=== PATIENT | female | born 1945 | race Caucasian/White ===

== ENCOUNTER → 2020-08-20 11:28 | Outpatient (CLI) | payer MEDICARE, OTHER, SELFPAY ==
--- NOTE | ~2020-08-20 | XR_ITS ---
EXAMINATION: XR lumbar spine 2-3V DATE: 08/20/2020 11:46 INDICATION: Low back pain. Left leg radiculopathy. TECHNIQUE: 3 views of lumbar spine were obtained. COMPARISON: None. FINDINGS: There is 10 degrees dextroscoliosis of lumbar spine. There is 3 mm anterolisthesis of L4 on L5. Vertebral body heights are normal. There is moderately decreased disc height at L5-S1. There are endplate osteophytes at all levels. There is multilevel facet joint osteoarthritis, [id number] re at L3-L4 and L4-L5. IMPRESSION: 1. Moderate lower lumbar spondylosis. 2. Lumbar levoscoliosis. Reviewed, dictated and finalized at location A. ORER
== END ==
PROVIDERS: PCP Family Medicine; Visit Provider Family Medicine
DX: M47.26 Other spondylosis with radiculopathy, lumbar region (principal)
CPT/HCPCS: 72100

== ENCOUNTER → 2021-05-27 11:00 | Outpatient (CLI) | payer MEDICARE, OTHER, SELFPAY ==
--- NOTE | ~2021-05-27 | XR_ITS ---
EXAMINATION: XR chest 2V DATE: 05/27/2021 11:26 INDICATION: Cough TECHNIQUE: PA and lateral views of the chest are obtained. COMPARISON: 08/24/2016 FINDINGS: The lungs are free of acute opacities. There is no pleural effusion or pneumothorax. The ca rdiomediastinal silhouette is normal. There is moderate thoracic spondylosis. Surgical clips and asym metry in size of the breasts (right small left) are consistent with right breast surgery. IMPRESSION: 1. No acute cardiopulmonary abnormality. Reviewed, dictated and finalized at location A.
--- NOTE | ~2021-05-27 | XR_ITS ---
EXAMINATION: XR humerus LT DATE: 05/27/2021 11:26 INDICATION: Left arm pain TECHNIQUE: AP and lateral views of the left humerus were obtained. COMPARISON: None. FINDINGS: Alignment is normal. No fracture. Mild polyarticular osteoarthritis at the left acromioclavicular, gl enohumeral and elbow joints. Osteopenia. No periosteal reaction or suspicious lytic or blastic bone l esions. Soft tissues are unremarkable. Visualized portions of the lateral right lung are clear. IMPRESSION: 1. Osteopenia and mild polyarticular arthritis at the left elbow and shoulder. No acute osseous abnor mality. Reviewed, dictated and finalized at location A. IMPRESSION: 1. Osteopenia and mild polyarticular arthritis at the left elbow and shoulder. No acute osseous abnormality.
== END ==
PROVIDERS: PCP Physician Assistant; Visit Provider Physician Assistant
DX: R05 Cough (principal); M19.012 Primary osteoarthritis, left shoulder; M19.022 Primary osteoarthritis, left elbow; M47.814 Spondylosis without myelopathy or radiculopathy, thoracic region
CPT/HCPCS: 71046; 73060

== ENCOUNTER → 2021-08-08 13:30 | Outpatient (CLI) | payer MEDICARE, OTHER, SELFPAY ==
--- NOTE | ~2021-08-08 | DEXA_ITS ---
Bone Density Report Name: Jalyn Harrington Age: 76 Sex: Female Ethnicity: Juany Date of : 1945 Indication: postmenopausal; screening for osteoporosis; height loss; Referring Provider: PAWEL, SAVANNAH Study: Bone densitometry was performed. Exam Date: August 08, 2021 Accession number: [id number] Bone Density: Region BMD T-score Z-score Classification AP Spine (L1-L4) 0.905 -1.3 1.2 Osteopenia Femoral Neck (Left) 0.732 -1.1 1.1 Osteopenia Total Hip (Left) 0.750 -1.6 0.3 Osteopenia Femoral Neck (Right) 0.659 -1.7 0.5 Osteopenia Total Hip (Right) 0.730 -1.7 0.2 Osteopenia Total Hip Mean 0.740 -1.7 0.3 Osteopenia World Health Organization criteria for BMD impression classify patients as: Normal (T-score at or above -1.0), Osteopenia (T-score between -1.0 and -2.5), or Osteoporosis (T-score at or below -2.5). 10-year Fracture Risk(1): Major Osteoporotic Fracture 13% Hip Fracture 3.2% Reported Risk Factors: [place] (), Neck BMD=0.659, BMI=25.6 (1) FRAX(R) Version 3.08. Fracture probability calculated for an untreated patient. Fracture probability may be lower if the patient has received treatment. Previous Exams: Region Exam Age BMD T-score BMD Change BMD Change Date g/cm2 vs Baseline vs Previous AP Spine(L1-L4) 08/08/2021 76 0.905 -1.3 0.024* -0.046* 06/12/2008 63 0.951 -0.9 0.070* 0.070* 04/07/2005 59 0.881 -1.5 Total Hip(Left) 08/08/2021 76 0.750 -1.6 -0.073 -0.106* 06/12/2008 63 0.855 -0.7 0.033 -0.072* 04/07/2005 59 0.927 -0.1 0.105 0.152 03/25/2004 58 0.776 -1.4 -0.047* -0.047* 03/11/2003 57 0.822 -1.0 Total Hip(Right) 08/08/2021 76 0.730 -1.7 -0.100 -0.104* 06/12/2008 63 0.834 -0.9 0.004 -0.026 04/07/2005 59 0.860 -0.7 0.030 0.073 03/25/2004 58 0.787 -1.3 -0.043* -0.043* 03/11/2003 57 0.830 -0.9 *Denotes significance at 95% confidence level, LSC for AP Spine = 0.022 g/cm2, LSC for Total Hip = 0.027 g/cm2 Clinical Information Provided by Patient: Has used the following medications: Vitamin D, Calcium, MTV Patient maximum height was 64.5 Menopause Age: 47 No regular weight bearing exercise Does not regularly consume dairy products Drinks caffeinated beverages Onset of menses at age 12 Number of children 2
== END ==
PROVIDERS: PCP Physician Assistant; Visit Provider Physician Assistant
DX: Z78.0 Asymptomatic menopausal state (principal); M85.88 Other specified disorders of bone density and structure, other site; M85.852 Other specified disorders of bone density and structure, left thigh; M85.851 Other specified disorders of bone density and structure, right thigh
CPT/HCPCS: 77080

== ENCOUNTER → 2022-08-10 15:41 | Outpatient (CLI) | payer MEDICARE, OTHER, SELFPAY ==
--- NOTE | ~2022-08-10 | XR_ITS ---
XR chest 2V DATE: 08/10/2022 16:04 INDICATION: Cough TECHNIQUE: 2 views COMPARISON: 06/23/2021 2 view chest FINDINGS: There is prominent likely rounded consolidation in the right lower lobe, with some right lo wer lobe volume loss. On the PA projection this has the appearance of a 5.5 cm rounded mass lesion. C ontinued radiographic follow-up is recommended to show complete clearing in order to exclude any liga ment lung neoplasm. The lungs otherwise appear mildly hyperinflated suggesting COPD. There may be a very small right pleural effusion. No hilar or mediastinal enlargement is noted. No pn eumothorax. Heart size appears within normal range. Small right breast shadow and surgical clips near the junction of the lateral right breast and axilla , likely due to axillary node dissection. Diffuse osteopenia. IMPRESSION: Prominent rounded consolidation in the right lower lobe, with some right lower lobe volum e loss. Continued radiographic follow-up is recommended to show complete clearing in order to exclude any lung mass or obstructing endobronchial lesion Probable partial right pneumonectomy and axillary node dissection Bilateral hyperinflation suggesting possible COPD; clinical correlation is advised, as the elderly ch est can simulate the appearance of COPD Osteopenia Reviewed, dictated and finalized at location B. APPLIANCE INSTALLER IMPRESSION: Prominent rounded consolidation in the right lower lobe, with some right lower lobe volume loss. Continued radiographic follow-up is recommended t o show complete clearing in order to exclude any lung mass or obstructing endob ronchial lesion Probable partial right pneumonectomy and axillary node dissection Bilateral hyperinflation suggesting possible COPD; clinical correlation is advi sed, as the elderly chest can simulate the appearance of COPD Osteopenia
== END ==
PROVIDERS: PCP Physician Assistant; Visit Provider Physician Assistant
DX: R05.9 Cough, unspecified (principal); J39.8 Other specified diseases of upper respiratory tract; M85.88 Other specified disorders of bone density and structure, other site; R91.8 Other nonspecific abnormal finding of lung field
CPT/HCPCS: 71046

== ENCOUNTER → 2022-08-30 13:23 | Outpatient (CLI) | payer MEDICARE, OTHER, SELFPAY ==
--- NOTE | ~2022-08-30 | XR_ITS ---
XR chest 2V DATE: 08/30/2022 13:58 INDICATION: Cough, shortness of breath TECHNIQUE: 2 views COMPARISON: 08/10/2022 2 view chest FINDINGS: Approximately 5.5 cm mass density is noted in the right lower lobe in addition to some atel ectasis and/or consolidation. There has been no improvement since 08/10/2022. Pulmonary malignancy ca nnot be excluded. CT thorax is recommended. Moderate bilateral hyperinflation consistent with COPD. No hilar or mediastinal enlargement is evident. Normal heart size. Diffuse osteopenia. There is mild thoracic dextroscoliosis. IMPRESSION: Persistent approximately 5 x 5 cm right lower lobe lung mass density without improvement since 08/10/2022; pulmonary malignancy must be considered. CT thorax examination is recommended. Reviewed, dictated and finalized at location B. OR SHAREPOINT DEVELOPER IMPRESSION: Persistent approximately 5 x 5 cm right lower lobe lung mass densit y without improvement since 08/10/2022; pulmonary malignancy must be considered . CT thorax examination is recommended.
== END ==
PROVIDERS: PCP Physician Assistant; Visit Provider Physician Assistant
DX: R91.8 Other nonspecific abnormal finding of lung field (principal)
CPT/HCPCS: 71046

== ENCOUNTER 2024-07-14 13:19 | Outpatient (CLI) | payer MEDICARE, OTHER, SELFPAY ==
--- NOTE | ~2024-07-14 | DEXA_ITS ---
Bone Density Report Name: YAEL FRIAS Age: 79 Sex: Female Ethnicity: Juany Date of : 1945 Indication: postmenopausal; screening for osteoporosis; height loss; cancer; Referring Provider: PAWEL, SAVANNAH Study: Bone densitometry was performed. Exam Date: July 14, 2024 Accession number: [id number] Bone Density: Region BMD T-score Z-score Classification AP Spine(L1-L4) 0.879 -1.5 1.2 Osteopenia Femoral Neck (Left) 0.578 -2.4 -0.1 Osteopenia Total Hip (Left) 0.687 -2.1 0.0 Osteopenia Femoral Neck (Right) 0.556 -2.6 -0.3 Osteoporosis Total Hip (Right) 0.678 -2.2 -0.1 Osteopenia Total Hip Mean 0.683 -2.2 -0.1 Osteopenia World Health Organization criteria for BMD impression classify patients as: Normal (T-score at or above -1.0), Osteopenia (T-score between -1.0 and -2.5), or Osteoporosis (T-score at or below -2.5). 10-year Fracture Risk: FRAX not reported because: Some T-score for Spine Total or Hip Total or Femoral Neck at or below -2.5 Clinical Information Provided by Patient: Has used the following medications: Vitamin D, Calcium Has the following medical conditions: Cancer, breact/lung ca Patient maximum height was 64.5 No regular weight bearing exercise Does not regularly consume dairy products Drinks caffeinated beverages Onset of menses at age 12 Number of children 2 Impression: The patient has osteoporosis, based on the Right Femoral Neck T-score. Discussion: INCREASED RISK OF FRACTURE. BONE DENSITY IS UNDESIRABLY LOW AT ONE OR MORE SKELETAL SITES, CONSISTENT WITH POSTMENOPAUSAL OSTEOPOROSIS. This patient's lowest T-score meets the World Health Organization's (WHO) criteria for osteoporosis at one or more sites (T-score -2.5 or below). In untreated patients, the risk of osteoporotic fracture increases approximately two-fold for each 1.0 SD decrease in T-score. Low bone density is not the only risk factor for fracture; also consider factors such as patient's age, frailty or poor health, risk of falling, risk of injury, previous osteoporotic fracture, family history of osteoporosis, cigarette smoking, low body weight, etc. Not everyone with low bone mineral density has osteoporosis; osteomalacia and other metabolic bone disorders should also be considered. Patients who have osteoporosis should be evaluated for specific diseases and conditions (secondary causes) that may cause or contribute to bone loss. The [place] Association of Clinical Endocrinologists (AACE) and National Osteoporosis Foundation (NOF) recommend pharmacologic intervention for all postmenopausal women whose T-score is in this range. The patient should follow a healthful lifestyle (good nutrition with adequate calcium and vitamin D, and appropriate weight-bearing exercise). Follow-Up: Consider a repeat BMD an
== END 2024-07-14 13:20 | disposition home or self-care (01) ==
LOC: ANHIMG 13:21
PROVIDERS: PCP Physician Assistant; Visit Provider Physician Assistant
DX: Z78.0 Asymptomatic menopausal state (principal); M85.852 Other specified disorders of bone density and structure, left thigh; M85.851 Other specified disorders of bone density and structure, right thigh; M85.88 Other specified disorders of bone density and structure, other site; M81.0 Age-related osteoporosis without current pathological fracture
CPT/HCPCS: 77080

== ENCOUNTER 2025-06-10 21:15 | Emergency (ER) | payer MEDICARE, OTHER, SELFPAY ==
--- OUTSIDE RECORDS SUMMARY | 2024-04-15 07:00 | XMS_ITS | Continuity of Care Document ---
Author Organization [facility] Address [address] [place] [address] Phone Care Team Providers Care Prior Authorization Technician Name Role Phone Regan Gray Unavailable Unavailable Procedures Procedure Date Therapeutic Activities Neuromuscular Re-Ed Therapeutic Activities Neuromuscular Re-Ed Therapeutic Activities Neuromuscular Re-Ed Therapeutic Activities Neuromuscular Re-Ed Remote therapeutic monitor monthly mgmt 20m Therapeutic Activities Neuromuscular Re-Ed Therapeutic Exercise Therapeutic Activities Neuromuscular Re-Ed Therapeutic Exercise Doc neg elder mal no plan PRES/ABSN URINE INCON ASSESS PT Evaluation Moderate Complexity Therapeutic Activities Neuromuscular Re-Ed Advance Directives Directive Yes / No Effective Date File Name No Information Encounters Encounter Description Practice Location Reason(s) For Visit Diagnoses Date Provider Providers Copied on Encounter [facility] [facility], [place], [place], [id number], [place] tel:[phone] [place] No Information Acacia Spears. [address] [facility], [address], [place], [address], [place]. tel:[phone] [facility] [facility] [address], [place], [id number], tel:[phone] [place] No Information May-1 0-202 4 Muehl Regan. [address] [place] [address], [facility] [address], [place], [facility], . tel:[phone] Referring Provider: James Coles [address] [place] [address] [address], [address]. tel:[phone], [id number], tel:[phone] [place] No Information May-0 8-202 4 Muehl Regan. [address] [place] [address], [facility] [address], [place], [facility], . tel:[phone] Referring Provider: James Coles [address] [place] [address] [place] [address], [facility]. tel:[phone], [id number], tel:[phone] [place] No Information May-0 3-202 4 Muehl Regan. [address] [place] [address], [address], [place], [facility], . tel:[phone] Referring Provider: James Coles [address] [place] [address], [address]. tel:[phone], [id number], tel:[phone] [place] No Information May-0 1-202 4 Muehl Regan. [address] [place] [address], [facility] [address], [place], [facility], . tel:[phone] Referring Provider: James Coles [address] [place] [address], [address]. tel:[phone], [place], [id number], tel:[phone] [place] Muscle weakness (generalized)Diz ziness and giddinessUnstead iness on feet Apr-3 0-202 4 Muehl Regan. [address] [facility], [address], [place], [facility], . tel:[phone] Referring Provider: James Coles [address] [place] [address], [place], [address]. tel:[phone], [id number], tel:[phone] [place] No Information Dec- 4 Lurtz Ofe. . Referring Provider: James Coles [address] [place] [address], [address]. tel:[phone], [id number], tel:[phone] [place] No Information 4 Lurtz Ofe. . Referring Provider: James Coles [address] [place] [address], [address]. tel:[phone], [id number], tel:[phone] [place] No Information 4 Acacia Spears. [address] [facility], [address], [place], [facility], . tel:[phone] Referring Provider: James Coles [address] [place] [address], [address]. tel:[phone] Family History Family Member Type Diagnosis Age At Onset No Information Payers Payer name Insurance type Covered alliance party ID Authoriza tivikash(s) Medicare [place] [id number] For Life Medicare Se condary Only CI [id number] Social History Type Description Quantity Date Captured Comments Sex Female Smoking Status No Information Chief Complaint And Reason For Visit No Information Reason For Referral Reason For Referral No Information History Of Present Illness Encounter Date Complaint History Of Prese nt Illness No Information Functional Status Date Functional Assessmen t No Information Instructions Date Instruction Additional Infor mation No Information Assessments Type Assessment Date No Information Patient Care Teams Name Effective Dates (start - stop) Status Members No Information
--- NOTE | ~2025-06-10 | CT_ITS ---
CTA CHEST CLINICAL HISTORY: syncope, Hx lung CA, +dimer . COMPARISON: Chest x-ray today TECHNIQUE: Helical CTA performed from thoracic inlet to upper abdomen 100 mL Omnipaque 350 Coronal, sagittal reformats. Multiplanar MIPS CT images acquired with automatic exposure control for dose reduction DLP: 430 mGy-cm FINDINGS: Pulmonary arteries: No PE. Thoracic Aorta: No dissection or aneurysm. Heart/pericardium: Coronary artery calcifications. RV/LV ratio: Normal. Lungs/Pleura: Emphysema. 14 mm spiculated lesion right lower lobe, surrounding atelectasis. Tracheobronchial tree: Patent. Nodes: No enlarged nodes. Bones: No acute bony abnormality. Soft tissues: Unremarkable. Visualized upper abdomen: Small hiatal hernia and/or distal esophagitis. IMPRESSION: 1. Right lower lobe spiculated lesion highly concerning for malignancy. Background emphysema. 2. No PE or other acute cardiopulmonary findings. Reviewed, dictated and finalized at location R. IMPRESSION: 1. Right lower lobe spiculated lesion highly concerning for malignancy. Backgr ound emphysema. 2. No PE or other acute cardiopulmonary findings.
--- NOTE | ~2025-06-10 | XR_ITS ---
Examination: XR chest 2V Clinical History: Syncope Comparison: None Technique: PA and Lateral Findings: Cardiomediastinal silhouette normal size and configuration. Right basilar scar. Emphysema. No acute bony abnormality. Osteopenia. IMPRESSION: 1. No acute cardiopulmonary findings. Reviewed, dictated and finalized at location R.
--- NOTE | ~2025-06-10 | CT_ITS ---
CT HEAD NON-CONTRAST CT C-SPINE Clinical History: syncope, hi Comparison: None Technique: Unenhanced axial images skull base to vertex. Coronal, sagittal reformats. Axial images thoracic inlet to skull base. Sagittal and coronal reformats. CT images acquired with automatic exposure control for dose reduction DLP: 605 mGy-cm Findings: Head: Mild global atrophy. Mild chronic white matter microvascular ischemic changes. Sulci, ventricles: Unremarkable. No intracerebral hemorrhage. No evidence acute territorial infarct. No mass effect, midline shift, intra-/extra-axial fluid collection. Bony calvarium intact. Visualized paranasal sinuses: Clear. Mastoid air cells: Clear. C-spine: No acute fracture. Grade 1 anterolisthesis of C3 on 4, C4 on 5, C7 on T1. Vertebral bodies normal height and alignment. Moderate degenerative changes. Disc spaces maintained. Prevertebral soft tissues within normal limits. Visualized lung apices: Emphysema. Visualized thyroid: Unremarkable. No enlarged cervical nodes. IMPRESSION: HEAD: 1. No acute intracranial findings. C-SPINE: 1. No acute fracture. Reviewed, dictated and finalized at location R. IMPRESSION: HEAD: 1. No acute intracranial findings. C-SPINE: 1. No acute fracture.
[2025-06-10 21:17] VITALS: BP 129/66; PULSE 76; RESP 16; O2SAT 100
--- NOTE | 2025-06-10 21:22 | ECG_ITS ---
Test Date: 2025-06-10 21:19:27 Measurements Intervals [place] Rate: 79 P: 45 MO: 174 QRS: -25 QRSD: 97 T: 28 QT: 372 QTc: 426 Interpretive Statements SINUS RHYTHM LOW QRS VOLTAGE IN PRECORDIAL LEADS [QRS DEFLECTION < 1.0 mV IN CHEST LEADS] POSSIBLE ANTERIOR MYOCARDIAL INFARCTION , PROBABLY OLD [30 ms Q WAVE IN V3/V4, OR R < 0.2 mV IN V4] CANNOT RULE OUT INFERIOR INFARCTION ABNORMAL ECG No previous ECG available for comparison Electronically Signed On 06-11-2025 07:58:11 CDT by Ambrosio Galaviz M.D.
[2025-06-10 21:37] LABS: Hematocrit 43.4 % (37.0-47.0); Hemoglobin 14.2 g/dL (12.0-15.0); Immature Granulocyte Percent A 0.3 % (0-0.5); Lymphocytes Absolute Auto 0.76 K/mm3 (0.9-3.2); Mean Corpuscular HGB Conc 32.7 g/dl (32-36); Mean Corpuscular Hemoglobin 29.2 pg (26-34); Mean Corpuscular Volume 89.3 fl (80-100); Nucleated Red Blood Cells Absolute Auto 0.000 K/mm3 (0.0-0.012); Nucleated Red Blood Cells Perc 0.0 % (0.0-0.2); Platelet Count Result 231 k/mm3 (150-375); Red Blood Count 4.86 M/mm3 (4.2-5.4); White Blood Count 12.6 K/mm3 (4.5-10.0)
--- OUTSIDE RECORDS SUMMARY | 2025-06-10 21:40 | XMS_ITS | Patient Health Record ---
Author Organization [facility] Address [address] [place], [place] [id number] Care Team Providers Care Electronic Court Recorder Name Role Phone Cristinahaylee Mattie Unavailable Unavailable Reason For Referral No Information Plan Of Treatment No Information Insurance Providers Payer Name Payer Address Payer Phone Subscriber Number Group Number Insured Name Patient Relationship to Insured Coverage Start Date Coverage End Date Medicare Part B [facility] [address] [place] [address] [id number] RODRIGUEZ YAEL Self - patient is the insured for Life ([employer]) [address] [place], [place] [id number] RODRIGUEZ YAEL Self - patient is the insured
--- OUTSIDE RECORDS SUMMARY | 2025-06-10 21:40 | XMS_ITS | Clinical Summary ---
Author Organization [facility] Address [address] [place] [address] Care Team Providers Care Health Safety And Environment Manager Name Role Phone Cristian Fontanez MD Unavailable Mattie Houser Unavailable [phone] Mattie Houser Primary Care Provider [phone] Allergies Active Allergy Reactions Criticality Noted Date Comments Amoxicillin-Pot Clavulanate Rash High 09/23/20 23 All over patient's body Medications Calcium Carb-Cholecalcif paul (CALCIUM + VITAMIN D3 OR) Take 1 tablet by mouth daily. Active vitamin C 1000 MG tablet Take 1,000 mg by mouth daily. Active BIOTIN OR Take 2,000 mg by mouth daily. Active AZELASTINE 137 MCG/SPRAY nasal spray 01/10/2021 Active predniSONE 10 mg tablet 08/26/2020 Active tiZANidine 4 MG tablet 08/13/2020 Active ibuprofen 800 MG tablet Take 1 tablet (800 mg total) by mouth every 8 (eight) hours as needed for Pain. 30 tablet 07/08/2021 Active Active Problems Problem Noted Date Diagnosed Date Lumbar radiculopathy 09/27/2020 Family History Medical History Relation Comments Cancer Father Relation Status Comments Daughter 1 Alive Daughter 2 Alive Father (Age 83) Mother (Age 59) of pancre atitis after gall bladder surgery 1970 Social History Tobacco Use Types Packs/Day Years Used Date Smoking Tobacco: Former Cigarettes 1 40 1 965 - 2005 Smokeless Tobacco: Never Tobacco Cessation:Counseling Given: Not Answered Alcohol Use Standard Drinks/Week Comments Yes 10 (1 standard drink = 0.6 oz pure alcohol) SOCIAL 1 o2 drinks most days since retired Comments No Sex and Gender Information Value Date Recorded Sex Assigned at Not on file Legal Sex Female 8:26 PM CDT Gender Identity Not on file Sexual Orientation Not on file 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 Not on file Not on file Last Filed Vital Signs Vital Sign Reading Time Taken Comments Blood Pressure 134/87 07/08/2021 11:45 AM CDT Pulse 56 07/08/2021 11:45 AM CDT Temperature 36.1 C (97 F) 07/08/2021 11:45 AM CDT Respiratory Rate 14 07/08/2021 11:45 AM CDT Oxygen Saturation 97% 07/08/2021 11:45 AM CDT Inhaled Oxygen Concentration - - Weight 64.1 kg (141 lb 5 oz) 07/08/2021 7:28 AM CDT Height 162.6 cm (5' 4) 07/08/2021 7:28 AM CDT Body Mass Index 24.26 07/08/2021 7:28 AM CDT Plan of Treatment Health Maintenance Due Date Last Done Comments DTaP, Tdap and Td Vaccines ( 1 - Tdap) 1963 Zoster Vaccines (1 of 2) 1994 Annual Medicare Wellness Visit 2009 Dexa Scan (General) 2009 RSV Immunization or 60+ Years (1 - 1-dose 75+ series) 2019 COVID-19 Vaccine (3 - 2024-2 6 season) 2025 11/25/2020, 10/28/2020 Pneumococcal Vaccine: 50+ Years Completed 01/16/2022, 01/10/2021 Meningococcal B Vaccine Aged Out No l onger eligible based on patient's age to complete this topic Meningococcal Vaccine Aged Out No melinda denise eligible based on patient's age to complete this topic RSV Immunizations Under 20 Months Aged Out No longer eligible b ased on patient's age to complete this topic Insurance MEDICARE [facility] Care Teams Health Safety And Environment Manager Relationship Specialty Start Date End Date Mattie Houser PA [address] [place] [address] PCP - General PHYSICIAN RING STRIKER 11/17/22 Cristian Fontanez MD CARDIOVASCULAR DISEASE 07/01/21 Mattie Houser PA [address] [place] [address] PHYSICIAN RING STRIKER 07/01/21
--- OUTSIDE RECORDS SUMMARY | 2025-06-10 21:41 | XMS_ITS | Encounter Summary ---
Author Organization [facility] Address [address] [address] [place] [address] Care Team Providers Care Weather Analyst Name Role Phone Unavailable Primary Care Provider Unavailabl e Encounter Details Date Type Department Care Team (Late st Contact Info) Description 12/26/2023 Lab Requisition [facility] - DermPath Lab [address] [place] [id number] Raúl Mahoney MD [address] [place] [address] Social History Tobacco Use Types Packs/Day Years Used Date Smoking Tobacco: Never Assessed Comments Unknown Sex and Gender Information Value Date Recorded Sex Assigned at Not on file Legal Sex Female 3:41 PM CDT Gender Identity Not on file Sexual Orientation Not on file documented as of this encounter Plan of Treatment Not on file documented as of this encounter Procedures Procedure Name Priority Date/Time Associated Diagnosis Comments DERMATOPATHOLOGY Routine 12/25/2023 12:0 0 AM CDT documented in this encounter Results * DERMATOPATHOLOGY (12/25/2023 12:00 AM CDT) Case Report Dermatopathology Report Case: [id number] Authorizing Provider: Raúl Mahoney MD Collected: 12/25/2023 12:00 AM Ordering Location: [facility] Physician [facility] - Received: 12/27/2023 06:27 AM DermPath Lab Pathologist: Lori Blanchard MD Specimen: Skin, midline mid forehead 9:06 AM CDT DERMATOPATHOLOGY LABORATORY Addendum 1 Tumor extends to the deep margin. 9:06 AM CDT DERMATOPATHOLOGY LABORATORY Addendum electronically signed by Lori Blanchard MD on 01/01/2024 at 0906 CDT Final Diagnosis Specimen A. SKIN, midline mid forehead: BASAL CELL CARCINOMA, NODULAR TYPE (C44.319) 9:06 AM CDT DERMATOPATHOLOGY LABORATORY at 1245 CDT Clinical History R/O BCC vs Scar. Check margins. 9:06 AM CDT DERMATOPATHOLOGY LABORATORY Gross Description Specimen A: Received is one formalin filled container labeled with the patients name and designated midline mid forehead. The specimen consists of a shave removal measuring 5x4x1 mm. Jar 0. 9:06 AM CDT DERMATOPATHOLOGY LABORATORY Microscopic Description Specimen A. SKIN, midline mid forehead: Within the dermis there are aggregates of basaloid cells with a high nuclear to cytoplasmic ratio and peripheral palisading. 9:06 AM CDT DERMATOPATHOLOGY LABORATORY Disclaimer An external and internal positive and negative controls are appropriate for the histochemical, immunohistochemical and immunofluorescence stain(s) in this case (if any), except where stated explicitly. The performance characteristics of the stain(s) cited in this report were developed and its performance characteristic determined by the Dermatopathology Laboratory at [facility], directed by Dr. Claire Multani. These tests need not be, and therefore are not, approved by the [place] Food and Drug Administration. The tests are used for clinical purposes. Billing Codes Specimen Charges Stain Charges 39357 1 9:06 AM CDT DERMATOPATHOLOGY LABORATORY Embedded Images 9:06 AM CDT DERMATOPATHOLOGY LABORATORY Pathology/Cytolog y TISSUE SPECIMEN FROM SKIN / Unknown 12/25/2023 12/27/2023 6:27 AM CDT us Raúl Mahoney MD LAB - PATHOLOGY/CYTOLOGY ORD ERABLES Edited Result - Final DERMATOPATHOLOGY LABORATORY [facility] - Department of Dermatology [address] [place] [address], [facility] [phone] documented in this encounter Visit Diagnoses Not on filedocumented in this encounter
--- OUTSIDE RECORDS SUMMARY | 2025-06-10 21:41 | XMS_ITS | Clinical Summary ---
Author Organization [facility] [employer] Address [address] [place] [address] Care Team Providers Care Rotary Drier Operator Name Role Phone Unavailable Primary Care Provider Unavailabl e Source Comments [facility] [employer],non-owned Affiliates and Associated Physician Practices is amultiple site organization consisting of ambulatory clinics and hospital sitesin [place], [place], [place] and [place]. This disclosure is being madepursuant to the Care Everywhere program and may not contain all information available regarding this patient. Last updated 18.[facility] [employer] Social History Tobacco Use Types Packs/Day Years Used Date Smoking Tobacco: Never Assessed Comments Unknown Sex and Gender Information Value Date Recorded Sex Assigned at Not on file Legal Sex Female 3:41 PM CDT Gender Identity Not on file Sexual Orientation Not on file Plan of Treatment Health Maintenance Due Date Last Done Comments MEDICARE AWV 12 MONTHS 1944 DTAP/TDAP/TD VACCINES (1 - Tdap) 1963 PNEUMOCOCCAL VACCINE 50+ (1 of 1 - PCV) 1994 ZOSTER VACCINE (1 of 2) 1994 Respiratory Syncytial Virus (RSV) Vaccine Pt: or over 60 yrs (1 - 1-dose 75+ series) 2019 DEPRESSION SCREENING 09/24/2024 COVID-19 VACCINE (3 - 2024-2 6 season) 2025 11/25/2020, 10/28/2020 INFLUENZA VACCINE (#1) 2025 3, 07/26/2022 BONE DENSITY TESTING Completed 08/08/2021 HEPATITIS B VACCINE Aged Out No longe r eligible based on patient's age to complete this topic HIB VACCINE Aged Out No longer eligi ble based on patient's age to complete this topic HPV VACCINE Aged Out No longer eligi ble based on patient's age to complete this topic MENINGOCOCCAL (Group B) VACCINE SHARED DECISION-MAKING Aged Out No longer eligible based on patient's age to complete this topic MENINGOCOCCAL GROUPS A/C/Y/W VACCINE Aged Out No longer eligible b ased on patient's age to complete this topic Insurance MEDICARE [facility]
--- OUTSIDE RECORDS SUMMARY | 2025-06-10 21:41 | XMS_ITS | Encounter Summary ---
Author Organization [facility] Healthcare Address [address] [place] [address] Care Team Providers Care Mold Breaker Name Role Phone Mattie Houser Primary Care Provider + [phone] Ángel Loera MD Unavailable [phone] James Coles MD PhD Unavailable [phone] Encounter Details Date Type Department Care Team (Late st Contact Info) Description 04/15/2025 Results Follow-Up [facility] Family Medicine [address] [place] [address] Mattie Houser PA [address] [facility] [address] [address] [place] [address] Vitamin B12, TSH, Lipid panel, Additional followed-up results: 6 Social History Tobacco Use Types Packs/Day Years Used Date Smoking Tobacco: Former Cigarettes 1 45 0 1960 - 06/23/2005 Smokeless Tobacco: Never AUDIT-C Answer Date Recorded Q1: How often do you have a drink containing alcohol? 4 or more times a week 04/14/2025 Q2: How many drinks containi ng alcohol do you have on a typical day when you are drinking? 1 or 2 Q3: How often do you have si x or more drinks on one occasion? Weekly 04/14/2025 PHQ-2 Answer Date Recorded PHQ-2 Total Score (If total score is 3 or more points, staff should administer the PHQ-9) 0 03/11/2025 Personal Safety Answer Date Recorded Have you ever been in or are you currently in a harmful physical or emotional relationship or is someone making you feel afraid or unsafe? 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 Gender Identity Female 03/31/2020 8:08 AM CDT Sexual Orientation Straight 03/31/2020 8: 08 AM CDT documented as of this encounter Plan of Treatment Not on file documented as of this encounter Visit Diagnoses Not on filedocumented in this encounter Care Teams Mold Breaker Relationship Specialty Start Date End Date Mattie Houser PA [address] [facility] [address] [place] [address] PCP - General Internal Medicine 12/21/20 Ángel Loera MD [address] [facility] [address] [place] [address] Consulting Physician Pulmonary Disease 10/25/22 James Coles MD PhD [address] [place] [address] MEDICAL ONCOLOGY, [address] [address] Consulting Physician Medical Oncology 11/02/22 documented as of this encounter
--- OUTSIDE RECORDS SUMMARY | 2025-06-10 21:41 | XMS_ITS | Clinical Summary ---
Author Organization [facility] Address [address] [facility] [place] [address] Care Team Providers Care Host/Hostess Head Name Role Phone Mattie Houser Primary Care Provider [phone] Ángel Loera MD Unavailable [phone] James Coles MD PhD Unavailable Allergies Active Allergy Reactions Criticality Noted Date Comments Amoxicillin-Pot Clavulanate Rash High 09/23/20 23 All over patient's body Medications calcium carbonate-vitam in D3 400-133.3 mg-unit tablet Take 1 tablet/capsule by mouth daily Active calcium-magnesi um 300-300 mg tablet Take 1 tablet/capsule by mouth daily Active multivitamin tabletIndicatio ns:Vitamin Deficiency Prevention Take 1 tablet by mouth daily Active cholecalciferol (VITAMIN D-3) 1,000 unit tablet Take 1 tablet (1,000 Units total) by mouth daily Active cycloSPORINE (RESTASIS) 0.05 % ophthalmic emulsion 3 Active triamcinolone (KENALOG) 0.5 % cream Apply topically 3 (three) times a day Apply as needed for itching 454 g 4 Active diphenhydrAMINE 25 mg capsule Take 1 tablet/capsule (25 mg total) by mouth every 6 (six) hours as needed for itching 20 capsule 4 Active ipratropium (ATROVENT) 21 mcg (0.03 %) nasal spray Administer 2 sprays into each nostril 2 (two) times a day 4 Active ibandronate (BONIVA) 150 mg tablet Take 1 tablet (150 mg total) by mouth every 30 (thirty) days Take in AM with glass of water prior to food, don't lie down for 30 minutes. 3 tablet 4 5 Active levothyroxine (SYNTHROID) 100 mcg tablet TAKE 1 TABLET BY MOUTH EVERY MORNING BEFORE BREAKFAST 90 tablet 1 5 Active Active Problems Patient Care Coordination No te Formatting of this note migh t be different from the original. Catie Marshall NP 11/17/2022 0915 AM This is a 77-year-old patient presenting to the clinic today for follow-up after undergoing right video assisted thoracoscopy and debridement of the pleural space with placement of a Pleurx catheter on 11/15/2022. She was discharged from [facility] the next day, 11/16/2022. She is being seen in the clinic today for further education regarding Pleurx cathter care and draining. Problem Noted Date Diagnosed Date At risk for diabetes mellitus 03/23/2025 Assessment & Plan (03/23/2025 12:40 AM CDT): Check labs Pruritic dermatitis 03/23/2025 Assessment & Plan (03/23/2025 12:40 AM CDT): Check labs since she has pruritus. Has Kenalog at home to use topically. If it persists need to get her in with Dermatology Fatigue 03/23/2025 Assessment & Plan (03/23/2025 12:40 AM CDT): Probably multifactorial. Check labs and followup to re-evaluate Malignant neoplasm of lower lobe of right lung 1 10/29/2023 Simple chronic bronchitis 08/27/2024 Need for influenza vaccination 08/10/2024 Assessment & Plan (08/10/2024 8:48 PM SUPERVISOR ACCOUNTS RECEIVABLE): Flu vaccine updated in the office today Osteopenia of both hips 08/10/2024 Assessment & Plan (03/23/2025 12:39 AM CDT): Reviewed DXA with patient today 06/2024 SPine (-1.5) Total hip (B) (-2.2) On Calcium and vitamin D. Started Boniva 150mg Tolerating well. Taking as directed. NO side effects. Assessment & Plan (12/05/2024 8:35 PM CDT): Patient is tolerating the Boniva well without any side effects or problems. Continue to take on a monthly basis. Will plan repeat DEXA in July 13, 2026. Assessment & Plan (08/10/2024 8:56 PM SUPERVISOR ACCOUNTS RECEIVABLE): 06/2024 SPine (-1.5) Total hip (B) (-2.2) Patients DXA showed her bones are not as dense as they were when she was younger. This is called osteopenia. To maintain the bone strength she already has, I encourage calcium (approximately 1500mg daily in divided doses or from your diet), vitamin D (supplement otc 5,000IU each day with a meal for best absorption) and weight bearing exercise (walking, dancing, gardening etc) to maintain the good bone strength. Discussed treatment options including Cascade versus bisphosphonates versus Prolia. Reviewed risks benefits alternatives side effects and proper use. Together agreed upon Boniva 150 mg taking 1 each month. She is to take it in the morning on an empty stomach and lie down for 30 minutes. Will recheck DEXA in about 2 years. If she starts having any difficulty swallowing or reflux type symptoms she is to call immediately. History of basal cell carcinoma (BCC) 02/22/2024 Assessment & Plan (08/10/2024 8:47 PM SUPERVISOR ACCOUNTS RECEIVABLE): Continue per Dr. Mahoney dermatology. She is following every 6 months Assessment & Plan (02/22/2024 6:56 PM CDT): By recollection patient states she has a basal cell removed from her forehead by Dr. Mahoney. She would prefer to transfer care to extraction machine operator Dr. Marie as this is who has been taking care of her . Will request the pathology so a referral can be made to Dr. Marie. Stressed the importance of patient following up with the extraction machine operator for definitive treatment. She verbalizes understanding and if she does not hear from us in the next couple of weeks she will reach out. Acquired hypothyroidism 10/06/2023 Assessment & Plan (03/23/2025 12:40 AM CDT): Continue levothyroxine 75 mcg. Monitor labs. Assessment & Plan (08/10/2024 8:48 PM SUPERVISOR ACCOUNTS RECEIVABLE): Continue levothyroxine. Monitor labs. Managed by Dr. Coles Assessment & Plan (02/22/2024 6:55 PM CDT): Continue levothyroxine. Monitor labs. Assessment & Plan (10/06/2023 11:13 PM SUPERVISOR ACCOUNTS RECEIVABLE): Continue levothyroxine. Monitor labs. Encounter for immunotherapy 02/22/2023 Long-term use of high-risk medication 02/22/2023 BMI 24.0-24.9, adult 02/14/2023 Assessment & Plan (03/11/2025 1:18 PM CDT): Weight/BMI is in healthy range. Continue healthy lifestyle to maintain. Assessment & Plan (12/05/2024 9:14 AM CDT): Weight/BMI is in healthy range. Continue healthy lifestyle to maintain. Assessment & Plan (08/10/2024 8:47 PM SUPERVISOR ACCOUNTS RECEIVABLE): Weight/BMI is in healthy range. Continue healthy lifestyle to maintain. Assessment & Plan (02/22/2024 6:55 PM CDT): Weight/BMI is in healthy range. Continue healthy lifestyle to maintain. Assessment & Plan (10/06/2023 11:04 PM SUPERVISOR ACCOUNTS RECEIVABLE): Weight/BMI is in healthy range. Continue healthy lifestyle to maintain. Assessment & Plan (09/10/2023 2:42 PM SUPERVISOR ACCOUNTS RECEIVABLE): Weight/BMI is in healthy range. Continue healthy lifestyle to maintain. Assessment & Plan (02/14/2023 9:13 AM CDT): Weight/BMI is in healthy range. Continue healthy lifestyle to maintain. Pleural effusion on right 10/24/2022 Panlobular emphysema 10/24/2022 Assessment & Plan (11/18/2022 2:08 PM SUPERVISOR ACCOUNTS RECEIVABLE): New diagnosis lung cancer with recent acute exacerbation of COPD. She is to complete her prednisone taper Tessalon Perles and use Spiriva as instructed. She has follow-up scheduled with Oncology to complete the planning of treatment for her new diagnosis of cancer. Dr. Nunez miss his her welfare investigator. Continue close follow-up with him. She has all of her medications available. Hyponatremia 10/23/2022 Persons encountering health services in other specified circumstances 10/17/2022 History of lung cancer 10/12/2022 Cancer Staging:Clinical stage from 11/07/2022:Stage IV(cT4, cN2, cM1) - Signed by James Coles MD PhD on 11/07/2022 Overview (08/10/2024): non-small cell cancer of right lung Assessment & Plan (08/10/2024 8:47 PM SUPERVISOR ACCOUNTS RECEIVABLE): Continue closely with Oncology. Continues with very close monitoring for her lung cancer. Assessment & Plan (02/22/2024 6:55 PM CDT): Continue closely with Oncology. Continues with very close monitoring for her lung cancer. Assessment & Plan (02/26/2023 1:42 PM CDT): Continue per Dr. Loera and Dr. Coles Assessment & Plan (11/18/2022 2:07 PM SUPERVISOR ACCOUNTS RECEIVABLE): New diagnosis lung cancer with recent acute exacerbation of COPD. She is to complete her prednisone taper Tessalon Perles and use Spiriva as instructed. She has follow-up scheduled with Oncology to complete the planning of treatment for her new diagnosis of cancer. Dr. Nunez miss his her welfare investigator. Continue close follow-up with him. She has all of her medications available. Mediastinal lymphadenopathy 09/26/2022 Lung mass 09/05/2022 Weight loss 09/05/2022 Assessment & Plan (11/01/2022 10:06 AM SUPERVISOR ACCOUNTS RECEIVABLE): Weight/BMI is in healthy range. Continue healthy lifestyle. Non-seasonal allergic rhinitis due to pollen Assessment & Plan (02/26/2023 1:41 PM CDT): Persistent allergic rhinitis. Has not responded to medications that have been tried and ready to see ENT. Medicare annual wellness visit, subsequent 01/16 Assessment & Plan (03/23/2025 12:39 AM CDT): Encouraged healthy lifestyle, good nutrition and exercise. Encouraged Calcium and Vitamin D and weight bearing exercise for bone health. Reviewed immunizations. Reviewed age appropirate screenings. Medicare Wellness Documentation is completed within the chart Assessment & Plan (01/28/2024 1:24 PM CDT): Encouraged healthy lifestyle, good nutrition and exercise. Encouraged Calcium and Vitamin D and weight bearing exercise for bone health. Reviewed immunizations. Reviewed age appropirate screenings. Medicare Wellness Documentation is completed within the chart Assessment & Plan (02/26/2023 1:41 PM CDT): Encouraged healthy lifestyle, good nutrition and exercise. Encouraged Calcium and Vitamin D and weight bearing exercise for bone health. Reviewed immunizations. Reviewed age appropirate screenings. Medicare Wellness Documentation is completed within the chart Assessment & Plan (02/04/2022 11:00 AM CDT): Encouraged healthy lifestyle, good nutrition and exercise. Encouraged Calcium and Vitamin D and weight bearing exercise for bone health. Reviewed immunizations. Reviewed age appropirate screenings. Medicare Wellness Documentation is completed within the chart Nasal congestion 01/16/2022 Assessment & Plan (02/04/2022 11:00 AM CDT): Patient has tried multiple rrio-tiu-upxmdapo as well as Astelin spray and just not getting any improvement. She is ready to see ENT. Will refer to Dr. Moser Bone loss 12/23/2021 Cigarette nicotine dependence in remission 07/01 Family history of heart disease 05/24/2021 Assessment & Plan (05/24/2021 11:55 AM CDT): Check labs Chronic cough 05/24/2021 Assessment & Plan (09/23/2023 1:08 AM SUPERVISOR ACCOUNTS RECEIVABLE): Start antibiotic, antihistamine (Claritin OR Zyrtec), Mucinex 12hour and Steroid nasal spray (Flonase). Push fluids. Rest. Supportive care. Recommend CXR -- Followup in 2-3 weeks to reassess -- will not be able to clear her for surgery until she is breathing easier. Assessment & Plan (05/24/2021 12:22 PM CDT): Check chest ray for mild cough Menopause 01/30/2021 Assessment & Plan (02/22/2024 6:54 PM CDT): Check DEXA Assessment & Plan (01/30/2021 10:24 PM CDT): Check DXA Lumbar radiculopathy 09/27/2020 Abnormal findings on diagnostic imaging of breas t 04/07/2020 History of breast cancer 09/04/2018 Encounter for screening mamm ogram for malignant neoplasm of breast 09/04/2018 History of malignant neoplasm of breast 08/10/20 16 Assessment & Plan (01/28/2024 1:24 PM CDT): History of breast cancer. Continue per Dr. Ramirez orders. She notes a new breast finding was found on a recent image that is following her lung cancer and that Dr. Ramirez is going to address her follow-up. Notes in the chart make it sound like she needs an ultrasound but it does not sound like she has been informed that yet. If it goes more than a week she is to call my office so we can follow-up and help get her scheduled. She is in agreement with the plan Estrogen receptor positive status (ER+) 09/09/20 15 Elevated liver enzymes Malignant neoplasm of female breast Resolved Problems Problem Noted Date Diagnosed Date Resolved Date Skin lesion of face 01/28/2024 02/22/20 24 Assessment & Plan (01/28/2024 1:23 PM CDT): Patient had biopsy done by Dr. Mahoney, dermatology. Was referred to another provider for Mohs procedure but wants to see Dr. Marie as her sees him. Will request the pathology report from Dr. Mahoney and then forward to Dr. Marie with a new referral. Rash 10/06/2023 01/28/2024 Assessment & Plan (10/06/2023 11:06 PM SUPERVISOR ACCOUNTS RECEIVABLE): Suspect this rash is actually a reaction to her Keytruda and not to the Augmentin. Discussed with her oncologist. It is improving so at this point they are recommending observing. Encouraged patient to follow up if symptoms worsen or do not resolve. Respiratory infection 10/06/20232023 Assessment & Plan (10/06/2023 11:07 PM SUPERVISOR ACCOUNTS RECEIVABLE): Symptoms have resolved. Her breathing is back to her baseline. Continue per pulmonology Simple chronic bronchitis 07/10/2023 BMI 20.0-20.9, adult 11/18/2022 023 Assessment & Plan (11/18/2022 2:08 PM SUPERVISOR ACCOUNTS RECEIVABLE): Weight/BMI is in healthy range. Continue healthy lifestyle to maintain. She has lost weight during this early diagnosis. Continue good nutrition to maintain and even gain weight. Moderate malnutrition 11/14/20222023 Shortness of breath 11/12/2022 02/22/20 24 Need for 23-polyvalent pneum ococcal polysaccharide vaccine 01/16/2022 11/18/2022 Assessment & Plan (02/04/2022 11:00 AM CDT): Pneumonia vaccine updated in office Flu vaccine need 06/23/2021 01/28/2024 Abnormal EKG 06/23/2021 01/28/2024 Assessment & Plan (06/23/2021 12:06 AM CDT): Patient presented today for preoperative clearance for a foot procedure with the epic interface analyst. Had routine EKG showed inferior infarct. Patient denies any knowledge of this. She denies any symptoms of an HI. She does recall that may be 40 or 50 years ago she was told there was an abnormal EKG but the other EKG she had maybe 20 years ago was fine. She is able to walk stairs without limitations. Denies chest pain shortness of breath syncopal episodes. Discussed cardiac risk based on her age and this finding and recommend as cardiac clearance with probable stress test prior to her surgery. Preop examination 06/23/2021 02/04/2022 Assessment & Plan (06/23/2021 12:07 AM CDT): Pre-op labs and EKG results are on the chart. EKG was abnormal. See entry above. Will plan referral to Cardiology for cardiac clearance. Fatigue 05/24/2021 01/28/2024 Assessment & Plan (05/24/2021 12:23 PM CDT): Probably multifactorial. Check labs and followup to re-evaluate Left arm pain 05/24/2021 01/28/2024 Assessment & Plan (05/24/2021 12:22 PM CDT): Check xray If negative may consider PT for improved mobility as she has limited external rotation Need for vaccination with 13 -polyvalent pneumococcal conjugate vaccine 01/30/2021 Assessment & Plan (01/30/2021 10:24 PM CDT): Updated in office today Medicare annual wellness visit, initial 01/30/2021 02/04/2022 Assessment & Plan (01/30/2021 10:24 PM CDT): Encouraged healthy lifestyle, good nutrition and exercise. Encouraged Calcium and Vitamin D and weight bearing exercise for bone health. Reviewed immunizations. Reviewed age appropirate screenings. Medicare Wellness Documentation is completed within the chart Malignant neoplasm of lung 0 02/26/2023 Encounters Date Type Department Care Team Description 04/15/2025 Results Follow-Up [facility] Medicine [facility] [facility] [address] [place] [address] Mattie Houser PA Vitamin B12, TSH, Lipid panel, Additional followed-up results: 6 04/14/2025 1:45 PM CDT Office Visit [facility] [address] [place] [address] [address] [place] [id number] James Coles MD PhD Malignant neoplasm of lower lobe of right lung (HCC) (Primary Dx) 04/14/2025 1:15 PM CDT Lab [facility] at [address] [address] Malignant neoplasm of lower lobe of right lung (HCC); Encounter for immunotherapy; Long-term use of high-risk medication 04/08/2025 10:55 AM CDT Ancillary Procedure [facility] at [address] [phone] Cellulitis of right upper extremity 04/08/2025 10:45 AM CDT Office Visit [facility] at [address] [phone] José Justcie NP Cellulitis of right upper extremity (Primary Dx) 04/08/2025 Results Follow-Up [facility] at [address] [phone] José Justice NP XR Wrist Right 3+ Vw 04/08/2025 Nurse Triage [facility] Medicine [address] [place] [address] [address] [place] [phone] Mattie Houser PA 04/07/2025 9:00 AM CDT - 04/07/2025 11:59 PM CDT Hospital Encounter [facility] Office Building [address] [place] [phone] Malignant neoplasm of lower lobe of right lung (HCC) Discharge Disposition: Discharge to home or self care 03/26/2025 9:35 AM CDT Lab [facility] Office Building [address] [address] Pruritic dermatitis; Acquired hypothyroidism; At risk for diabetes mellitus; Other terminal superintendent (current) drug therapy 03/11/2025 1:00 PM CDT Office Visit [facility] [address] [facility] [address] [place] [address] Mattie Houser PA Medicare annual wellness visit, subsequent (Primary Dx); Acquired hypothyroidism; Fatigue, unspecified type; Pruritic dermatitis; At risk for diabetes mellitus; Osteopenia of both hips; Other half-way (current) drug therapy; BMI 24.0-24.9, adult from Last 3 Months Immunizations Immunization Administration Dates Next Due Influenza, Quadrivalent, Heydi l Culture-based MDCK, Preservative Free, Antibiotic Free, Intramuscular 07/26/2022 Influenza, Quadrivalent, Hig h Dose, Preservative Free, Intrr 07/05/2023,06/22/2021,07/22/2020 Influenza, Trivalent, High D ose, Split, Preservative Free, Intramuscular 07/30/2024 Influenza, Unspecified 07/08/2023,2022(Deferred: Patient Refused),10/25/2021(Deferred: Patient Refused) Pfizer SARS-CoV-2 Monovalent Vaccination (12+ Yrs) PURPLE 11/25/2020,10/28/2020 Pneumococcal Conjugate PCV 13 01/10/2021 Pneumococcal Polysaccharide PPV23 01/16/2022 Surgical History Surgery Date Site/Laterality Comments SECTION x2 EYE SURGERY Bilateral cataracts BUNIONECTOMY 06/24/2021 - 07/24/2021 Left BREAST LUMPECTOMY 09/24/2010 - 09/23/2011 Right COLONOSCOPY US GUIDED THORACENTESIS 10/24/2022 N/A CHEST TUBE INSERTION 11/15/2022 Right aspira catheter TUBAL LIGATION 1977 Medical History Medical History Date Comments Personal history of other sp ecified conditions History of breast lump - (Ad ded by TW Conv) Cancer (HCC) breast. resolved Hx of radiation therapy Allergic rhinitis Lung mass Lung cancer (HCC) Osteoporosis 2023 Family History Medical History Relation Name Comments Cancer Father Christ Juarez Lung cancer Father Christ Juarez Family his tory of lung cancer - (Added by TW Conv) Dementia Maternal Grandfather Stroke Maternal Grandmother Kati Lopez Pancreatitis Mother Relation Name Status Comments Father Christ Juarez Maternal Grandfather Maternal Grandmother Kati Lopez Mother Social History Tobacco Use Types Packs/Day Years Used Date Smoking Tobacco: Former Cigarettes 1 45 0 1960 - 06/23/2005 Smokeless Tobacco: Never Tobacco Cessation:Counseling Given: Not Answered AUDIT-C Answer Date Recorded Q1: How often [...] on file Legal Sex Female 5:53 AM SUPERVISOR ACCOUNTS RECEIVABLE Gender Identity Female 03/31/2020 8:08 AM CDT Sexual Orientation Straight 03/31/2020 8: 08 AM CDT Obstetrics History Last Filed Vital Signs Vital Sign Reading Time Taken Comments Blood Pressure 144/81 04/14/2025 1:57 PM CDT Pulse 65 04/14/2025 1:57 PM CDT Temperature 36.6 C (97.8 F) 04/14/2025 1:57 PM CDT Respiratory Rate 18 04/14/2025 1:57 PM CDT Oxygen Saturation 97% 04/14/2025 1:57 PM CDT Inhaled Oxygen Concentration - - Weight 60.9 kg (134 lb 4.2 oz) 04/14/2025 1:57 P M CDT Height 161.3 cm (5' 3.5) 04/08/2025 10:44 AM CD T Body Mass Index 23.41 04/08/2025 10:44 AM CDT Plan of Treatment Health Maintenance Due Date Last Done Comments DTaP/Tdap/Td Vaccine (1 - Tdap) 1956 Hepatitis B Screening 1962 Zoster Vaccine (1 of 2) 1994 Covid-19 Vaccine (7 - 2024-2 6 season) 2025 07/05/2023, 07/26/2022, 02/16/2022, Additional history exists Influenza Vaccine (#1) 2025 , 07/08/2023, 07/08/2023, Additional history exists Depression Screening 03/11/2026 03/11/2025, 07/30/2024, 01/28/2024, Additional history exists Fall Risk Assessment 03/11/2026 03/11/2025, 12/05/2024, 01/28/2024, Additional history exists Well Visit 65+ 03/11/2026 03/11/2025, 05/02/2024, 02/14/2023, Additional history exists Osteoporosis Screening-Bone Density Scan 07/15/2026 07/15/2024, 08/08/2021, 09/10/2015, Additional history exists Pneumococcal vaccine 65+ Completed 01/16/2022, 12/23 Procedures Procedure Name Priority Date/Time Associated Diagnosis Comments EGFR Routine 04/14/2025 1:18 PM CDT Malignant neoplasm of lower lobe of right lung (HCC) DIFFERENTIAL AUTO Routine 04/14/2025 1:1 8 PM CDT Malignant neoplasm of lower lobe of right lung (HCC) CBC WITH AUTO DIFFERENTIAL Routine 04/14/2025 1:18 PM CDT Malignant neoplasm of lower lobe of right lung (HCC) COMPREHENSIVE METABOLIC PANEL Routine 04/14/2025 1:18 PM CDT Malignant neoplasm of lower lobe of right lung (HCC) TSH Routine 04/14/2025 1:18 PM CDT Malignant neoplasm of lower lobe of right lung (HCC) Encounter for immunotherapy Long-term use of high-risk medication XR WRIST RIGHT 3 OR MORE VIEWS Schedule KENNY, Read KENNY (Appt Today, Awaiting Results) 04/08/2025 10:59 AM CDT Cellulitis of right upper extremity CT CHEST ABDOMEN PELVIS W CONTRAST Schedule Routine, Read Routine (OP Routine) 04/07/2025 9:32 AM CDT Malignant neoplasm of lower lobe of right lung (HCC) EGFR Routine 03/26/2025 9:52 AM CDT Pruritic dermatitis DIFFERENTIAL AUTO Routine 03/26/2025 9:5 2 AM CDT Pruritic dermatitis CBC WITH AUTO DIFFERENTIAL Routine 03/26/2025 9:52 AM CDT Pruritic dermatitis COMPREHENSIVE METABOLIC PANEL Routine 03/26/2025 9:52 AM CDT Pruritic dermatitis CHAD QUALITATIVE WITH REFLEX TO CHAD QUANTITATIVE Routine 03/26/2025 9:52 AM CDT Pruritic dermatitis HEMOGLOBIN A1C Routine 03/26/2025 9:52 AM CDT At risk for diabetes mellitus Other terminal superintendent (current) drug therapy LIPID PANEL Routine 03/26/2025 9:52 AM CDT At risk for diabetes mellitus TSH Routine 03/26/2025 9:52 AM CDT Acquired hypothyroidism VITAMIN B12 Routine 03/26/2025 9:52 AM CDT Pruritic dermatitis DEXA AXIAL SKELETON BONE DENSITY 1 OR MORE SITES Schedule Routine, Read Routine (OP Routine) 07/15/2024 7:32 AM CDT Menopause from Last 3 Months or Most Recently Relevant to Health Maintenance Results * eGFR (04/14/2025 1:18 PM CDT) eGFR 87 >=60 mL/min/1. 73 m2 Comment: Interpretive Data Reference Interval Normal >/= 90 mL/min/1.73m2 Mildly decreased* 60 - 89 mL/min/1.73m2 Mildly to moderately decreased 45 - 59 mL/min/1.73m2 Moderately to severely decreased 30 - 44 mL/min/1.73m2 Severely decreased 15 - 29 mL/min/1.73m2 Kidney Failure < 15 mL/min/1.73m2 *Relative to young adult level Estimated glomerular filtration rate is determined by the 2020 CKD-EPI equation recommended by the National Kid[employer] (A Unifying Approach to GFR Estimation: Recommendations of the NKF-ASK Task Force on Reassessing the Inclusion of Race in Diagnosing Kidney Disease, JASN 2020). The CKD-EPI equation should not be used for patients with unstable renal function and has not been validated in children and those over 70. Current interpretive data was last reviewed 2021. Testing performed by: [address] [address] Blood 04/14/2025 1:18 PM CDT 04/14/2025 1:26 PM CDT us James Coles MD PhD LAB BLOOD ORDERABLES Final Result MARCEL [address] [facility] Department of Laboratories [place], [place] [id number] * Differential, auto (04/14/2025 1:18 PM CDT) Pathologist [facility] Neutrophil abs 5.58 1.50 - 6.50 K/cumm Comment:Testing performed by : [address] [address] Imm gran abs 0.03 0.00 - 0.10 K/cumm MARCEL Comment:Testing performed by : [address] [address] Lymphocyte abs 1.35 0.80 - 3.30 K/cumm MARCEL Comment:Testing performed by : [address] [address] [address] Monocyte abs 0.59 0.20 - 0.80 K/cumm [facility] Comment:Testing performed by : [address] [address] Eosinophil abs 0.15 0.00 - 0.50 K/cumm [facility] Comment:Testing performed by : [address] [address] Basophil abs 0.09 0.00 - 0.10 K/cumm [facility] Comment:Testing performed by : [address] [address] Neutrophil pct 71.6 % [facility] Comment: Interpretive Data Percent cell count reference ranges are not reported, since discordance with absolute values may lead to misinterpretation of CBC data. Current Interpretive Data was last revised on 2018. Testing performed by: [address] [address] Imm gran pct 0.4 % [facility] Comment: Interpretive Data Percent cell count reference ranges are not reported, since discordance with absolute values may lead to misinterpretation of CBC data. Current Interpretive Data was last revised on 2018. Testing performed by: [address] [address] Lymphocyte pct 17.3 % [facility] Comment: Interpretive Data Percent cell count reference ranges are not reported, since discordance with absolute values may lead to misinterpretation of CBC data. Current Interpretive Data was last revised on 2018. Testing performed by: [address] [address] Monocyte pct 7.6 % [facility] Comment: Interpretive Data Percent cell count reference ranges are not reported, since discordance with absolute values may lead to misinterpretation of CBC data. Current Interpretive Data was last revised on 2018. Testing performed by: [address] [address] Eosinophil pct 1.9 % [facility] Comment: Interpretive Data Percent cell count reference ranges are not reported, since discordance with absolute values may lead to misinterpretation of CBC data. Current Interpretive Data was last revised on 2018. Testing performed by: [address] [address] Basophil pct 1.2 % [facility] Comment: Interpretive Data Percent cell count reference ranges are not reported, since discordance with absolute values may lead to misinterpretation of CBC data. Current Interpretive Data was last revised on 2018. Testing performed by: [address] [address] Blood 04/14/2025 1:18 PM CDT 04/14/2025 1:26 PM CDT us Jaems Coles MD PhD LAB BLOOD ORDERABLES Final Result [facility] [address] [facility] Department [place] [address] * CBC with auto differential (04/14/2025 1:18 PM CDT) WBC 7.79 3.80 - 9.90 K/cumm Comment:Testing performed by : [address] [address] Hgb 13.6 11.9 - 15.5 g/dL [facility] Comment:Testing performed by : [address] [address] Hct 39.8 35.6 - 45.5 % [facility] Comment:Testing performed by : [address] [address] Plt 242 150 - 400 K/cumm [facility] Comment:Testing performed by : [address] [address] MPV 10.0 9.1 - 12.3 fL [facility] Comment:Testing performed by : [address] [address] RBC 4.66 3.90 - 5.20 M/cumm [facility] Comment:Testing performed by : [address] [address] MCV 85.4 81.3 - 96.4 fL [facility] Comment:Testing performed by : [address] [address] MCH 29.2 27.1 - 33.3 pg [facility] Comment:Testing performed by : [address] [address] MCHC 34.2 32.3 - 35.7 g/dL [facility] Comment:Testing performed by : [address] [address] RDW CV 14.4 11.1 - 14.9 % [facility] Comment:Testing performed by : [address] [address] RDW SD 44.5 35.7 - 48.1 fL [facility] Comment:Testing performed by : [address] [address] NRBC abs 0.00 0.00 - 0.01 K/cumm [facility] Comment:Testing performed by : [address] [address] ANC Prelim 5.58 1.50 - 6.50 K/cumm [facility] Comment: Interpretive Data The rapid ANC is a preliminary automated count and may vary from the final ANC (Neut Abs) reported in the WBC differential that follows. Current interpretive data was last revised 2024. Testing performed by: [address] [address] Blood 04/14/2025 1:18 PM CDT 04/14/2025 1:26 PM CDT us James Coles MD PhD LAB BLOOD ORDERABLES Final Result [facility] [address] [facility] Department of Laboratories [place], [place] [id number] * TSH (04/14/2025 1:18 PM CDT) Thyroid Stimulating Hormone 1.13 0.30 - 4.20 mcIUnit/mL Comment:Testing performed by : [address] [address] Blood 04/14/2025 1:18 PM CDT 04/14/2025 4:22 PM CDT us James Coles MD PhD LAB BLOOD ORDERABLES Final Result [facility] [address] [facility] Department [place] [address] * (ABNORMAL) Comprehensive metabolic panel (04/14/2025 1:18 PM CDT) Sodium 137 135 - 145 mmol/L Comment:Testing performed by : [address] [address] Potassium, pl 5.0(H) 3.3 - 4.9 mmol/L [facility]EL Comment:Testing performed by : [address] [address] Chloride 98 97 - 110 mmol/L [facility] Comment:Testing performed by : [address] [address] CO2 27 22 - 32 mmol/L [facility] Comment:Testing performed by : [address] [address] Anion gap 12 2 - 15 mmol/L [facility] Comment:Testing performed by : [address] [address] BUN 13 6 - 25 mg/dL [facility] Comment:Testing performed by : [address] [address] Creatinine 0.70 0.60 - 1.10 mg/dL [facility] Comment:Testing performed by : [address] [address] Glucose 107 70 - 199 mg/dL [facility] Comment: Interpretive Data Fasting glucose >/= 126 mg/dl is diagnostic for diabetes. Fasting is defined as no caloric intake for at least 8 hours. Fasting glucose between 100 mg/dl to 125 mg/dl is diagnostic of prediabetes. In a patient with classic symptoms of hyperglycemia or hyperglycemic crisis, a random glucose >/= 200 mg/dl is diagnostic for diabetes. In the absence of unequivocal hyperglycemia, results should be confirmed by repeat testing. The classification and Diagnosis of Diabetes Diabetes Care 202; 46: S19-S40. Current interpretive data was last revised 2022. Testing performed by: [facility], [address] [place] [address]., [address] Calcium 10.1 8.5 - 10.3 mg/dL M[facility]EL Comment:Testing performed by : [address] [address] Bilirubin, total 0.3 0.1 - 1.2 mg/dL [facility] Comment:Testing performed by : [address] [address] Protein, pl 7.3 6.5 - 8.5 g/dL [facility] Comment:Testing performed by : [address] [address] Albumin 4.4 3.5 - 5.0 g/dL [facility] Comment:Testing performed by : [address] [address] Alk phos 129 40 - 130 Units/L [facility] Comment:Testing performed by : [address] [address] ALT 39 7 - 45 Units/L [facility] Comment:Testing performed by : [address] [address] AST 35 10 - 45 Units/L [facility] Comment:Testing performed by : [address] [address] Blood 04/14/2025 1:18 PM CDT 04/14/2025 1:26 PM CDT James Coles MD PhD LAB BLOOD ORDERABLES Final Result Performing Organization Address City/State/[facility] Co de Phone Number MARCEL [address] [facility] Department [place] [address] * XR Wrist Right 3+ Vw (04/08/2025 10:59 AM CDT) Anatomical Region Laterality Modality Upper Extremities, Wrist Right Digital Radiography 04/08/2025 4:51 PM CDT Narrative 04/08/2025 4:56 PM CDT EXAM DESCRIPTION: 1. XR WRIST RIGHT 3 OR MORE VIEWS REASON FOR STUDY: Wrist pain without injury x 1 day FINDINGS: Three views submitted without comparison. No acute fracture. 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 Chondrocalcinosis is present. 1st metacarpophalangeal joint osteoarthritis is present. No dorsal wrist soft tissue swelling. IMPRESSION: 1. 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 THIS IS AN ELECTRONICALLY VERIFIED FINAL REPORT 04/08/2025 4:56 PM - Electronically signed by Ousmane Alicia M.D. T: Report ID: [id number] Reading Location: [place] [address] Procedure Note Ousmane Alicia MD - 04/08/2025 EXAM DESCRIPTION: 1. XR WRIST RIGHT 3 OR MORE VIEWS REASON FOR STUDY: Wrist pain without injury x 1 day FINDINGS: Three views submitted without comparison. No acute fracture. Mild distal radioulnar, triscaphe and moderate basalthumb joint osteoarthritis. Chondrocalcinosis is present. 1stmetacarpophalangeal joint osteoarthritis is present. No dorsal wrist soft tissue swelling. IMPRESSION: 1. 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 THIS IS AN ELECTRONICALLY VERIFIED FINAL REPORT 04/08/2025 4:56 PM - Electronically signed by Ousmane Alicai M.D. T: Report ID: [id number] Reading Location: [place] [address] José Justice NP IM XR PROCEDURES Final Result * CT chest abdomen pelvis with contrast (04/07/2025 9:32 AM CDT) Anatomical Region Laterality Modality Body N/A Computed Tomogra phy 04/10/2025 9:37 AM CDT Narrative 04/10/2025 9:51 AM CDT EXAM DESCRIPTION: CT CHEST ABDOMEN PELVIS W CONTRAST REASON FOR STUDY: restaging of lung cancer restaging of lung cancer, Malignant neoplasm of lower lobe of right lung (HCC) Diagnosed two years ago. Prior right lumpectomy and surgeries TECHNIQUE: CT scan of the chest, abdomen, and pelvis performed with intravenous and without oral contrast using helical scanning technique with dynamic intravenous contrast injection. Reconstructed coronal and sagittal MPR images reviewed. All images stored on PACS. Automated exposure control was used as a dose optimization technique for this examination. CONTRAST TYPE/DOSE: 100mL of IOVERSOL 350 MG IODINE/ML INTRAVENOUS SYRINGE injected via intravenous COMPARISON: 01/06/2025, 10/10/2024, 07/10/2024. FINDINGS: CHEST LUNGS: Stable opacity within the right lower lobe, reflecting chronic scarring/atelectasis, stable from prior examination. Advanced emphysema is again demonstrated. No pneumonic consolidation. No new suspicious pulmonary nodule. PLEURA: No effusion. No pneumothorax. MEDIASTINUM/[place]: The thyroid gland is unremarkable. There is no mediastinal or hilar lymphadenopathy. Precarinal node measures 9 mm short axis, stable. There is a stable 1 cm short axis dimension node at the AP window. 8 mm short axis right hilar node on image number 49 is stable. No new adenopathy. The esophagus is unremarkable. HEART: The heart is normal in size, without pericardial effusion. There are coronary artery calcifications. VASCULATURE CHEST: The thoracic aorta is normal in caliber. Mild atherosclerotic changes. Main pulmonary trunk is normal in caliber. AXILLA: There are scattered axillary nodes bilaterally, subcentimeter in size, left slightly larger than right, stable. Axillary dissection changes on the right are stable. CHEST WALL: No masses. No subcutaneous air. HARDWARE/LINES/TUBES: None. MUSCULOSKELETAL CHEST: Thoracic spondylosis and degenerative disc disease, with multilevel endplate osteophyte formation. Mild dextroconvex curvature, stable ABDOMEN/PELVIS LIVER: The liver is within normal limits in size. Tiny scattered hypodensities in the liver, stable, too small to characterize. GALLBLADDER: No stones identified. No wall thickening or inflammatory changes. BILE DUCTS: No intrahepatic or extrahepatic ductal dilatation. SPLEEN: Normal size. No focal lesions. PANCREAS: No identified cystic or solid masses. No significant calcifications. No adjacent inflammation or peripancreatic fluid collections. Pancreatic duct not dilated. ADRENALS: Normal. KIDNEYS/URINARY TRACT: The kidneys enhance symmetrically. There is no suspicious cystic or solid mass. Cyst within the left kidney measures 3.8 cm, stable. There is no hydronephrosis or hydroureter. The urinary bladder is mildly thick walled, accentuated by decompression. GI: The stomach is decompressed, accentuating wall thickness. Consider gastritis or peptic ulcer disease in the appropriate clinical setting. Mild wall thickening versus decompression involving proximal jejunal loops. There is no evidence of a bowel obstruction. The appendix is normal. There is diverticulosis of the colon. Decompression of portions of the colon limits assessment for wall thickening or mass. There is diverticulosis, without diverticulitis. PERITONEUM: There is no free intraperitoneal air. There is no free fluid. No mesenteric lymphadenopathy. RETROPERITONEUM: No retroperitoneal mass or adenopathy. REPRODUCTIVE: The uterus is within normal limits in size. Prominence of vascularity within the adnexa bilaterally, left greater than right with mild enlargement of the left gonadal vein, as can be seen with pelvic congestion, stable. VASCULATURE ABDOMEN: The abdominal aorta is atherosclerotic, without aneurysm or dissection. MUSCULOSKELETAL ABDOMEN PELVIS: There is no acute osseous abnormality. Minimal grade 1 anterolisthesis of L4 on L5. Degenerative disc disease at the lumbosacral junction. 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 OTHER: No significant abnormality. IMPRESSION: 1. Stable presumed post treatment changes/scarring atelectasis in the right lower lobe. 2. No new suspicious pulmonary nodule. 3. Stable borderline enlarged mediastinal and right hilar nodes. No new adenopathy. 4. No evidence of metastatic disease within the abdomen or pelvis. 5. Moderate to severe emphysema. Recommend evaluation for annual lung cancer screening enrollment if the patient qualifies based on clinical factors and smoking history. 6. Additional findings as above THIS IS AN ELECTRONICALLY VERIFIED FINAL REPORT 04/10/2025 9:51 AM - Electronically signed by Megan Quiros M.D. TW: LIBBY Report ID: [id number] Reading Location: [id number] Procedure Note Megan Quiros MD - 04/10/2025 EXAM DESCRIPTION: CT CHEST ABDOMEN PELVIS W CONTRAST REASON FOR STUDY: restaging of lung cancer restaging of lung cancer, Malignant neoplasm of lower lobe of right lung(HCC) Diagnosed two years ago. Prior right lumpectomy and surgeries TECHNIQUE: CT scan of the chest, abdomen, and pelvis performed with intravenous and without oral contrast using helical scanning techniquewith dynamic intravenous contrast injection. Reconstructed coronal and sagittalMPR images reviewed. All images stored on PACS. Automated exposure control was used as a dose optimization technique for this examination. CONTRAST TYPE/DOSE: 100mL of IOVERSOL 350 MG IODINE/ML INTRAVENOUS SYRINGE injected via intravenous COMPARISON: 01/06/2025, 10/10/2024, 07/10/2024. FINDINGS: CHEST LUNGS: Stable opacity within the right lower lobe, reflecting chronic scarring/atelectasis, stable from prior examination. Advanced emphysemais again demonstrated. No pneumonic consolidation. No new suspiciouspulmonary nodule. PLEURA: No effusion. No pneumothorax. MEDIASTINUM/J[place]: The thyroid gland is unremarkable. There is no mediastinal or hilar lymphadenopathy. Precarinal node measures 9 mm short axis, stable. There is a stable 1 cm short axis dimension node at the AP window. 8 mm short axis right hilar node on image number 49 is stable.No new adenopathy. The esophagus is unremarkable. HEART: The heart is normal in size, without pericardial effusion. Thereare coronary artery calcifications. VASCULATURE CHEST: The thoracic aorta is normal in caliber. Mild atherosclerotic changes. Main pulmonary trunk is normal in caliber. AXILLA: There are scattered axillary nodes bilaterally, subcentimeter in size, left slightly larger than right, stable. Axillary dissectionchanges on the right are stable. CHEST WALL: No masses. No subcutaneous air. HARDWARE/LINES/TUBES: None. MUSCULOSKELETAL CHEST: Thoracic spondylosis and degenerative discdisease, with multilevel endplate osteophyte formation. Mild dextroconvexcurvature, stable ABDOMEN/PELVIS LIVER: The liver is within normal limits in size. Tiny scattered hypodensities in the liver, stable, too small to characterize. GALLBLADDER: No stones identified. No wall thickening or inflammatory changes. BILE DUCTS: No intrahepatic or extrahepatic ductal dilatation. SPLEEN: Normal size. No focal lesions. PANCREAS: No identified cystic or solid masses. No significant calcifications. No adjacent inflammation or peripancreatic fluidcollections. Pancreatic duct not dilated. ADRENALS: Normal. KIDNEYS/URINARY TRACT: The kidneys enhance symmetrically. There is no suspicious cystic or solid mass. Cyst within the left kidney measures 3.8cm, stable. There is no hydronephrosis or hydroureter. The urinary bladderis mildly thick walled, accentuated by decompression. GI: The stomach is decompressed, accentuating wall thickness. Consider gastritis or peptic ulcer disease in the appropriate clinical setting.Mild wall thickening versus decompression involving proximal jejunal loops.There is no evidence of a bowel obstruction. The appendix is normal. There is diverticulosis of the colon. Decompression of portions of the colonlimits assessment for wall thickening or mass. There is diverticulosis, without diverticulitis. PERITONEUM: There is no free intraperitoneal air. There is no freefluid. No mesenteric lymphadenopathy. RETROPERITONEUM: No retroperitoneal mass or adenopathy. REPRODUCTIVE: The uterus is within normal limits in size. Prominence of vascularity within the adnexa bilaterally, left greater than right withmild enlargement of the left gonadal vein, as can be seen with pelviccongestion, stable. VASCULATURE ABDOMEN: The abdominal aorta is atherosclerotic, without aneurysm or dissection. MUSCULOSKELETAL ABDOMEN PELVIS: There is no acute osseous abnormality. Minimal grade 1 anterolisthesis of L4 on L5. Degenerative disc disease atthe lumbosacral junction. 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 OTHER: No significant abnormality. IMPRESSION: 1. Stable presumed post treatment changes/scarring atelectasis in theright lower lobe. 2. No new suspicious pulmonary nodule. 3. Stable borderline enlarged mediastinal and right hilar nodes. No new adenopathy. 4. No evidence of metastatic disease within the abdomen or pelvis. 5. Moderate to severe emphysema. Recommend evaluation for annual lung cancer screening enrollment if the patient qualifies based on clinicalfactors and smoking history. 6. Additional findings as above THIS IS AN ELECTRONICALLY VERIFIED FINAL REPORT 04/10/2025 9:51 AM - Electronically signed by Megan Quiros M.D. TW: TW Report ID: [id number] Reading Location: [place] [address] us James Coles MD PhD IMG CT PROCEDURES Fin al Result * CHAD ab ql w/rflx to CHAD qn (03/26/2025 9:52 AM CDT) CHAD Negative Comment: Interpretive Data Normal range for CHAD Qualitative Antibody = Negative. 1. CHAD is performed using indirect immunofluorescence against HEp-2 cells 2. CHAD titers are performed on all positive qualitative results. 3. A significantly positive CHAD result is defined as a positive nuclear fluorescence at a titer of 1:80 or greater. 4. 15% of normal people above age 65 have significantly positive CHAD results. 5% or less of normal people age 65 or under have significantly positive CHAD results. Current interpretive data was last revised on 2020. Testing performed by: [facility], [address] [place]., [address] Blood 03/26/2025 9:52 AM CDT 03/26/2025 2:43 PM CDT Mattie DEE LAB BLOOD ORDERABLES Final Result MARCEL [address] [facility] Department [place] [address] * eGFR (03/26/2025 9:52 AM CDT) eGFR 87 >=60 mL/min/1. 73 m2 Comment: Interpretive Data Reference Interval Normal >/= 90 mL/min/1.73m2 Mildly decreased* 60 - 89 mL/min/1.73m2 Mildly to moderately decreased 45 - 59 mL/min/1.73m2 Moderately to severely decreased 30 - 44 mL/min/1.73m2 Severely decreased 15 - 29 mL/min/1.73m2 Kidney Failure < 15 mL/min/1.73m2 *Relative to young adult level Estimated glomerular filtration rate is determined by the 2020 CKD-EPI equation recommended by the National Kid[employer] (A Unifying Approach to GFR Estimation: Recommendations of the NKF-ASK Task Force on Reassessing the Inclusion of Race in Diagnosing Kidney Disease, JASN 2020). The CKD-EPI equation should not be used for patients with unstable renal function and has not been validated in children and those over 70. Current interpretive data was last reviewed 2021. Testing performed by: [facility], [address] [place] [address]., [address] Blood 03/26/2025 9:52 AM CDT 03/26/2025 10:46 AM CDT us Mattie DEE LAB BLOOD ORDERABLES Final Result MARCEL [address] [facility] Department [place] [address] * Differential, auto (03/26/2025 9:52 AM CDT) Neutrophil abs 3.72 1.50 - 6.50 K/cumm Comment:Testing performed by : [address] [address] Imm gran abs 0.02 0.00 - 0.10 K/cumm MARCEL Comment:Testing performed by : [address] [address] Lymphocyte abs 1.23 0.80 - 3.30 K/cumm MARCEL Comment:Testing performed by : [address] [address] Monocyte abs 0.66 0.20 - 0.80 K/cumm [facility] Comment:Testing performed by : [address] [address] Eosinophil abs 0.25 0.00 - 0.50 K/cumm [facility] Comment:Testing performed by : [address] [address] Basophil abs 0.06 0.00 - 0.10 K/cumm [facility] Comment:Testing performed by : [address] [address] Neutrophil pct 62.7 % [facility] Comment: Interpretive Data Percent cell count reference ranges are not reported, since discordance with absolute values may lead to misinterpretation of CBC data. Current Interpretive Data was last revised on 2018. Testing performed by: [address] [address] Imm gran pct 0.3 % MARCEL Comment: Interpretive Data Percent cell count reference ranges are not reported, since discordance with absolute values may lead to misinterpretation of CBC data. Current Interpretive Data was last revised on 2018. Testing performed by: [address] [address] Lymphocyte pct 20.7 % [facility] Comment: Interpretive Data Percent cell count reference ranges are not reported, since discordance with absolute values may lead to misinterpretation of CBC data. Current Interpretive Data was last revised on 2018. Testing performed by: [address] [address] Monocyte pct 11.1 % [facility]EL Comment: Interpretive Data Percent cell count reference ranges are not reported, since discordance with absolute values may lead to misinterpretation of CBC data. Current Interpretive Data was last revised on 2018. Testing performed by: [address] [address] Eosinophil pct 4.2 % [facility]EL Comment: Interpretive Data Percent cell count reference ranges are not reported, since discordance with absolute values may lead to misinterpretation of CBC data. Current Interpretive Data was last revised on 2018. Testing performed by: [address] [address] Basophil pct 1.0 % M[facility]EL Comment: Interpretive Data Percent cell count reference ranges are not reported, since discordance with absolute values may lead to misinterpretation of CBC data. Current Interpretive Data was last revised on 2018. Testing performed by: [address] [address] Blood 03/26/2025 9:52 AM CDT 03/26/2025 10:46 AM CDT us Mattie DEE LAB BLOOD ORDERABLES Final Result [facility] [address] [facility] Department [place] [address] * CBC with auto differential (03/26/2025 9:52 AM CDT) WBC 5.94 3.80 - 9.90 K/cumm Comment:Testing performed by : [address] [address] Hgb 14.7 11.9 - 15.5 g/dL MARCEL Comment:Testing performed by : [address] [address] Hct 44.2 35.6 - 45.5 % MARCEL Comment:Testing performed by : [address], [address] Plt 221 150 - 400 K/cumm MARCEL Comment:Testing performed by : [address], [address] MPV 11.1 9.1 - 12.3 fL MARCEL Comment:Testing performed by : [address], [address] RBC 5.07 3.90 - 5.20 M/cumm MARCEL Comment:Testing performed by : [address], [address] MCV 87.2 81.3 - 96.4 fL MARCEL Comment:Testing performed by : [address], [address] MCH 29.0 27.1 - 33.3 pg MARCEL Comment:Testing performed by : [address], [address] MCHC 33.3 32.3 - 35.7 g/dL MARCEL Comment:Testing performed by : [address], [address] RDW CV 14.6 11.1 - 14.9 % MARCEL Comment:Testing performed by : [address], [address] RDW SD 46.5 35.7 - 48.1 fL MARCEL Comment:Testing performed by : [address], [address] NRBC abs 0.00 0.00 - 0.01 K/cumm MARCEL Comment:Testing performed by : [address], [address] Blood 03/26/2025 9:52 AM CDT 03/26/2025 10:46 AM CDT us Mattie DEE LAB BLOOD ORDERABLES Final Result MARCEL [facility] [address] [place] [address] * TSH (03/26/2025 9:52 AM CDT) [facility] Thyroid Stimulating Hormone 0.93 0.30 - 4.20 mcIUnit/mL Comment:Testing performed by : [address] [address] Blood 03/26/2025 9:52 AM CDT 03/26/2025 10:46 AM CDT Mattie DEE LAB BLOOD ORDERABLES Final Result Performing Organization Address City/[facility] Co de Phone Number [id number] [address] * (ABNORMAL) Hemoglobin A1c (03/26/2025 9:52 AM CDT) [facility] Hgb A1C 5.8(H) 4.0 - 5.6 % Comment:Testing performed by : [address] [address] Estimated Average Glucose 120 mg/dL MARCEL Comment: The ADA recommends reporting an estimated Average Glucose (eAG) with all Hemoglobin A1c results using the equation derived from a study of 507 normal and diabetic adults. Minority populations were underrepresented and children were not included. (Diabetes Care 31:9629-3503, 2008). The eAG is not equivalent to a fasting glucose. Testing performed by: [address] [address] Blood 03/26/2025 9:52 AM CDT 03/26/2025 10:46 AM CDT Mattie DEE LAB BLOOD ORDERABLES Final Result Performing Organization Address City/[facility]/ZIP Co de Phone Number [place] [address] [place] [address] * Vitamin B12 (03/26/2025 9:52 AM CDT) Vitamin B12 578 230 - 1,250 pg/mL Comment:Testing performed by : [address] [address] Blood 03/26/2025 9:52 AM CDT 03/26/2025 10:46 AM CDT Mattie DEE LAB BLOOD ORDERABLES Final Result MARCEL [address] [facility] Department [place] [address] * Lipid panel (03/26/2025 9:52 AM CDT) Cholesterol 192 30 - 199 mg/dL Comment: Interpretive Data Ages < or = 19 years Acceptable: <170 mg/dL Borderline high: 170-199 mg/dL High: >or= 200 mg/dL Ages > or = 20 years Desirable: <200 mg/dL Borderline high: 200-239 mg/dL High: >or= 240 mg/dL Literature References: 1. Expert Panel on Integrated Guidelines for Cardiovascular Health and Risk Reduction in Children and Adolescents. Pediatrics 2011;128:S213 2. NCEP Expert Panel. Circulation 2004;110:227 Current Interpretive Data was last revised on 2018. Testing performed by: [address] [address] Triglycerides 104 <=149 mg/dL MILLIALFONSO Comment: Interpretive Data Ages < or = 9 years Acceptable: <75 mg/dL Borderline high: 75-99 mg/dL High: >or= 100 mg/dL Ages 10 to 20 years Acceptable: <90 mg/dL Borderline high: 90-129 mg/dL High: >or= 130 mg/dL Ages > or = 20 years Desirable: <150 mg/dL Borderline high: 150-199 mg/dL High: 200-499 mg/dL Very high: >or= 499 mg/dL Literature References: 1. Expert Panel on Integrated Guidelines for Cardiovascular Health and Risk Reduction in Children and Adolescents. Pediatrics 2011;128:S213 2. NCEP Expert Panel. Circulation 2004;110:227 Current Interpretive Data was last revised on 2018. Testing performed by: [address] [place] [address] HDL 98 >=40 mg/dL MARCEL Comment: Interpretive Data Ages < or = 19 years Acceptable: >45 mg/dL Borderline low: 40-45 mg/dL Low: <40 mg/dL Ages > or = 20 years Desirable: >or= 60 mg/dL Low: <40 mg/dL Literature References: 1. Expert Panel on Integrated Guidelines for Cardiovascular Health and Risk Reduction in Children and Adolescents. Pediatrics 2011;128:S213 2. NCEP Expert Panel. Circulation 2004;110:227 Current Interpretive Data was last revised on 2018. Testing performed by: [address] [address] LDL, calculated 76 <=129 mg/dL MARCEL CHAMPION Comment: Interpretive Data Ages < or = 19 years Acceptable: <110 mg/dL Borderline high: 110-129 mg/dL High: >or= 130 mg/dL Ages > or = 20 years Optimal: <100 mg/dL Near optimal: 100-129 mg/dL Borderline high: 130-159 mg/dL High: >160 mg/dL Calculated using the Carlos LDL-C estimating equation. This equation was implemented on 2024. Prior to this date LDL-C was estimated using the Friedewald equation. Literature References: 1. Expert Panel on Integrated Guidelines for Cardiovascular Health and Risk Reduction in Children and Adolescents. Pediatrics 2011;128:S213 2. NCEP Expert Panel. Circulation 2004;110:227 3. Carlos Izaguirre et al. JULIANNA Cardiol. 2019January 22;5(5):540-548. doi: 10.1001/[email or web address] Current Interpretive Data was last revised on 2024. Testing performed by: [address] [address] Non-HDL Cholesterol 94 mg/dL MARCEL CHAMPION Comment: Interpretive Data Ages < or = 19 years Acceptable: <120 mg/dL Borderline high: 120-144 mg/dL High: >145 mg/dL Ages > or = 20 years When triglycerides are >200 mg/dL, Non-HDL cholesterol is a secondary target of therapy with treatment goals that are 30 mg/dL greater than the LDL cholesterol target. Literature References: 1. Expert Panel on Integrated Guidelines for Cardiovascular Health and Risk Reduction in Children and Adolescents. Pediatrics 2011;128:S213 2. NCEP Expert Panel. Circulation 2004;110:227 Current Interpretive Data was last revised on 2018. Testing performed by: [address] [address] Chol/HDL ratio 2 MARCEL Comment:Testing performed by : [address] [address] Blood 03/26/2025 9:52 AM CDT 03/26/2025 10:46 AM CDT us Mattie DEE LAB BLOOD ORDERABLES Final Result MARCEL [facility] Department [place] [address] * Comprehensive metabolic panel (03/26/2025 9:52 AM CDT) Sodium 138 135 - 145 mmol/L Comment:Testing performed by : [address] [address] Potassium, pl 4.3 3.3 - 4.9 mmol/L MARCEL Comment:Testing performed by : [address] [address] Chloride 100 97 - 110 mmol/L MARCEL Comment:Testing performed by : [address] [address] CO2 26 22 - 32 mmol/L MARCEL Comment:Testing performed by : [address] [address] Anion gap 12 2 - 15 mmol/L MARCEL Comment:Testing performed by : [address] [address] BUN 9 6 - 25 mg/dL MARCEL Comment:Testing performed by : [address] [address] Creatinine 0.70 0.60 - 1.10 mg/dL MARCEL Comment:Testing performed by : [address] [address] Glucose 101 70 - 199 mg/dL MARCEL Comment: Interpretive Data Fasting glucose >/= 126 mg/dl is diagnostic for diabetes. Fasting is defined as no caloric intake for at least 8 hours. Fasting glucose between 100 mg/dl to 125 mg/dl is diagnostic of prediabetes. In a patient with classic symptoms of hyperglycemia or hyperglycemic crisis, a random glucose >/= 200 mg/dl is diagnostic for diabetes. In the absence of unequivocal hyperglycemia, results should be confirmed by repeat testing. The classification and Diagnosis of Diabetes Diabetes Care 2021; 46: S19-S40. Current interpretive data was last revised 2022. Testing performed by: [address] [address] Calcium 9.5 8.5 - 10.3 mg/dL MARCEL Comment:Testing performed by : [address] [address] Bilirubin, total 0.6 0.1 - 1.2 mg/dL MARCEL Comment:Testing performed by : [address] [address] Protein, pl 7.8 6.5 - 8.5 g/dL [facility] Comment:Testing performed by : [address] [address] Albumin 4.5 3.5 - 5.0 g/dL [facility] Comment:Testing performed by : [address] [address] Alk phos 127 40 - 130 Units/L [facility] Comment:Testing performed by : [address] [address] ALT 33 7 - 45 Units/L [facility] Comment:Testing performed by : [address] [address] AST 34 10 - 45 Units/L [facility] Comment:Testing performed by : [address] [address] Blood 03/26/2025 9:52 AM CDT 03/26/2025 10:46 AM CDT Mattie DEE LAB BLOOD ORDERABLES Final Result MILLINER [facility] [address] [facility] Department of Laboratories [place] [phone] * (ABNORMAL) Dexa Axial Skeleton Bone Density 1 or 2 Site (07/15/2024 7:32 AM CDT) SCRIBED DXA T-SCORE -1.5 SCRIBED DXA Z-SCORE 1.2 SCRIBED DXA BMD 0.879 Anatomical Region Laterality Modality Body N/A Radiographic Nova ging us Mattie DEE IMG DXA PROCEDURES Final R esult from Last 3 Months or Most Recently Relevant to Health Maintenance Insurance MEDICARE [employer] LIFE MEDICARE FOR LIFE MEDICARE FOR LIFE Advance Directives For more information, please contact: [phone] * Full Code (Latest Code Status on File) Date Activated Date Inactivated Comments 11/15/2022 3:07 PM 11/16/2022 8:23 PM * Full Code Date Activated Date Inactivated Comments 11/12/2022 10:19 PM 11/15/2022 3:07 PM * Full Code Date Activated Date Inactivated Comments 10/23/2022 11:43 PM 10/25/2022 5:12 PM Care Teams Host/Hostess Head Relationship Specialty Start Date End Date Mattie Houser PA [address] [place] [address] PCP - General Internal Medicine 12/21/20 Ángel Loera MD [address] [place] [address] Consulting Physician Pulmonary Disease 10/25/22 James Coles MD PhD [address] [place] [address] MEDICAL ONCOLOGY, [address] [place] [address] Consulting Physician Medical Oncology 11/02/22
--- OUTSIDE RECORDS SUMMARY | 2025-06-10 21:41 | XMS_ITS | Encounter Summary ---
Author Organization [facility] Healthcare Address [address] [place] [address] Care Team Providers Care Cable Ferry Operator Name Role Phone Mattie Houser Primary Care Provider + [phone] Ángel Loera MD Unavailable [phone] James Coles MD PhD Unavailable [phone] Encounter Details Date Type Department Care Team (Late st Contact Info) Description 04/08/2025 Results Follow-Up [facility] Medical [facility] Con[facility]ient Care at [address] [address] José Justice NP [address] [facility] [address] [place] [address] XR Wrist Right 3+ Vw Social History Tobacco Use Types Packs/Day Years [...] on file 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 Gender Identity Female 03/31/2020 8:08 AM CDT Sexual Orientation Straight 03/31/2020 8: 08 AM CDT documented as of this encounter Functional Status documented as of this encounter Plan of Treatment Not on file documented as of this encounter Visit Diagnoses Not on filedocumented in this encounter Care Teams Cable Ferry Operator Relationship Specialty Start Date End Date Mattie Houser PA [address] [place] [address] PCP - General Internal Medicine 12/21/20 Ángel Loera MD [address] [place] [address] Consulting Physician Pulmonary Disease 10/25/22 James Coles MD PhD [address] [place] [address] MEDICAL ONCOLOGY, [address] [address] Consulting Physician Medical Oncology 11/02/22 documented as of this encounter
--- OUTSIDE RECORDS SUMMARY | 2025-06-10 21:41 | XMS_ITS | Encounter Summary ---
Author Organization [facility] Address [address] [place] [address] Care Team Providers Care Die Repairer Trimmer Dies Name Role Phone Seferino Benitez MD Primary Care Provider [phone] Cristian Fontanez MD Unavailable Mattie Houser Unavailable [phone] Mattie Houser Primary Care Provider [phone] Reason for Referral * Surgical (Routine) - Closed Specialty Diagnoses / Procedures Referred By Lizy cote Referred To Contact Procedures Case request operating room: INJECTION EPIDURAL TRANSFORAMINAL L4-5, L5-S1 Marylu Bean NP [address] [facility] [address] [place] [address] Phone: tel: [phone] fax: Referral ID Status Reason Start Date Expiration Date Visits Re quested Visits Authorized [id number] Closed 09/27/2020 10/28/2021 1 1 K JUMPER Encounter Details Date Type Department Care Team (Late st Contact Info) Description 09/27/2020 Prep for Procedure [facility] [place] [address] [phone] Marylu Bean NP 3 [facility] [address] [place] [phone] (Work) Social History Tobacco Use Types Packs/Day Years Used Date Smoking Tobacco: Former Cigarettes Q uit: 2004 Smokeless Tobacco: Never Alcohol Use Standard Drinks/Week Comments Yes 0 (1 standard drink = 0.6 oz pur e alcohol) SOCIAL Comments No Sex and Gender Information Value Date Recorded Sex Assigned at Not on file Legal Sex Female 8:26 PM CDT Gender Identity Not on file Sexual Orientation Not on file 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 No / Unsure 09/29/2020 1:06 PM TRUCK JUMPER documented as of this encounter Plan of Treatment Scheduled Orders Name Type Priority Associated Diagnoses Order Schedule Case request operating room: INJECTION EPIDURAL TRANSFORAMINAL L4-5, L5-S1 Case Request Routine Once for 1 Occurrences starting 09/27/2020 until 09/27/2020 documented as of this encounter Visit Diagnoses Not on filedocumented in this encounter Care Teams Die Repairer Trimmer Dies Relationship Specialty Start Date End Date Seferino Benitez MD [address] [place] [address] PCP - General FAMILY PRACTICE 09/08/20 11/16/22 Mattie Houser PA [address] [facility] [address] [place] [address] PCP - General PHYSICIAN BULK TRUCK DRIVER 11/17/22 Cristian Fontanez MD [address] [place] [address] CARDIOVASCULAR DISEASE 07/01/21 Mattie Houser PA [address] [facility] [address] [place] [address] PHYSICIAN BULK TRUCK DRIVER 07/01/21 documented as of this encounter
--- OUTSIDE RECORDS SUMMARY | 2025-06-10 21:41 | XMS_ITS | Clinical Summary ---
Author Organization [facility] [place] Address [address] [place] [address] Phone Care Team Providers Care Chairman & Co Founder Name Role Phone Seferino Benitez MD Primary Care Provider [phone] Allergies No known active allergies Medications No known medications Active Problems Patient Care Coordination No te Formatting of this note migh t be different from the original. 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 Family History Medical History Relation Name Comments Lung Cancer Father Stroke Maternal Grandmother Relation Name Status Comments Father Maternal Grandmother Social History Tobacco Use Types Packs/Day Years Used Date Smoking Tobacco: Former Cigarettes Q uit: 09/24/2004 Alcohol Use Standard Drinks/Week Comments Yes 0 (1 standard drink = 0.6 oz pur e alcohol) daily Comments No Sex and Gender Information Value Date Recorded Sex Assigned at Not on file 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 Gender Identity Not on file Sexual Orientation Not on file Last Filed Vital Signs Vital Sign Reading Time Taken Comments Blood Pressure 130/80 07/04/2010 4:25 PM CDT Pulse - - Temperature - - Respiratory Rate - - Oxygen Saturation - - Inhaled Oxygen Concentration - - Weight 69.9 kg (154 lb) 07/04/2010 4:25 PM CDT Height 162.6 cm (5' 4) 07/04/2010 4:25 PM CDT Body Mass Index 26.43 07/04/2010 4:25 PM CDT Plan of Treatment Health Maintenance Due Date Last Done Comments DTAP/TDAP/TD VACCINES (1 - Tdap) 1963 PNEUMOCOCCAL VACCINE 50+ YEARS (1 of 1 - PCV) 04/13/19 94 ZOSTER VACCINE (1 of 2) 1994 OSTEOPOROSIS SCREENING 2009 RSV VACCINE (60+ or ) (1 - 1-dose 75+ series) 2019 INFLUENZA VACCINE (#1) 2025 Insurance MEDICARE PART A AND B [facility] Care Teams Chairman & Co Founder Relationship Specialty Start Date End Date Seferino Benitez MD [address] [place] [address] PCP - General Family Practice 07/04/10
[2025-06-10 21:46] LABS: Alanine Aminotransferase 39 U/L (6-35); Albumin Level 4.5 g/dL (3.5-5.1); Alkaline Phosphatase 113 U/L (38-126); Anion Gap 11 mmol/L (4-12); Aspartate Amino Transferase 40 U/L (14-36); Bilirubin,Total 0.6 mg/dL (0.2-1.3); Blood Urea Nitrogen 12 mg/dL (7-17); Calcium 9.4 mg/dL (8.4-10.2); Carbon Dioxide 22 mmol/L (22-30); Chloride 97 mmol/L (98-107); Estimated CRCL calculation 42 ml/min; Estimated Glomerular Filt Rate > 60; Glucose 144 mg/dL (65-110); Magnesium 2.1 mg/dL (1.6-2.3); Potassium 3.8 mmol/L (3.4-5.0); Sodium 130 mmol/L (137-145); Total Protein 7.6 g/dL (6.3-8.2)
[2025-06-10 21:57] LABS: Troponin I < 0.012 ng/mL (0.000-0.034)
--- NOTE | 2025-06-10 22:18 | ED.SYNCOPE ---
HPI - Syncope General Chief Complaint: Syncope Stated Complaint: syncopal episode Time Seen by Provider: 06/10/25 21:32 Source: patient Mode of arrival: EMS Limitations: no limitations History of Present Illness HPI narrative: Patient is an 80-year-old female who presents the ED via EMS with report of syncope. Patient reports she was out to eat with her friends tonight and playing a game when she began feeling dizzy, lightheaded, nauseous, sweaty. She felt as though she was about to pass out or throw up. She attempted to stand up to go to the restroom and had a syncopal episode. This was witnessed by her friends. She did fall to the ground, did hit her head. EMS was then called. Patient states she does not remember things until EMS showed up. She does report history of previous syncopal episodes in the past which have presented similarly. She is feeling improved currently. She denies current nausea, dizziness, lightheadedness, chest pain, shortness breath, palpitations, focal numbness or weakness, vision changes. She denies any areas of pain. She did eat a large dinner and had 1 beer. Reports history of right-sided lung cancer status post treatment. She has imaging performed every 3 months and states most recent imaging has been stable. She follows with Dr. Coles with [facility]. Denies SOB. Related Data Home Medications ?Medication ?Instructions ?Recorded ?Confirmed ?Last Taken ?Type ascorbic acid (vitamin C) 1,000 mg 1 g PO DAILY 10/10/23 10/10/23 Unknown History capsule calcium carbonate (Calcium 600) 600 mg PO DAILY 10/10/23 10/10/23 Unknown History cholecalciferol (vitamin D3) 25 25 mcg PO DAILY 10/10/23 10/10/23 Unknown History mcg (1,000 unit) capsule pembrolizumab 25 mg/mL intravenous 200 mg IV ONCE 10/10/23 10/10/23 Unknown History solution (Keytruda) levothyroxine 100 mcg tablet mcg PO 10/07/24 Unknown History Allergies Allergy/AdvReac Type Severity Reaction Status Date / Time No Known Allergies Allergy Unverified 10/07/24 09:35 Review of Systems Review of Systems: All systems reviewed & are unremarkable except as noted in HPI. All systems reviewed & are unremarkable except as noted in HPI and below PMFSH Past Medical History Medical History Cancer Family History Family History Father Lung cancer Social History Social History Smoking status: Never smoker Tobacco type: cigarettes Smoking end date: 09/24/04 Alcohol intake: current Substance use: never Substance use type: does not use Do You Feel Safe in your Home?: Yes Lack of Transportation: No Lack of Food: Never True Current Housing: I Have Housing Concerned About Future Housing: No Difficulty Paying Gas/Electric Bills: No Difficulty Paying for Meds: No Currently Unemployed: No Education: Bachelor's Degree Difficulty w/ Childcare or Family Care: No Exam Narrative: GENERAL: Elderly but well appearing, well-nourished, non-toxic, in no acute distress. HEAD: Normocephalic, atraumatic. EYES: PERRL/EOMI, conjunctivae clear bilaterally. No nystagmus. NECK: Supple. No midline cervical spinal tenderness. C-collar in place RESPIRATORY: Airway patent, respirations nonlabored. Clear to auscultation bilaterally, no rales, rhonchi, wheezing. CARDIOVASCULAR: Regular rate and rhythm without murmurs, rubs, or gallops. Peripheral pulses 2+ and equal bilaterally. MUSCULOSKELETAL: Moves all extremities. No gross deformities. No T/L midline spinal tenderness. No peripheral edema. SKIN: Warm, dry, normal color. No rashes. NEURO: A&O X3. Speech clear. Follows commands. CN II-XII intact. Sensation grossly intact. No ataxic movements. Strength 5/5 in upper and lower extremities bilaterally. No pronator drift. Equal production painter strength bilaterally. PSYCHIATRIC: Appropriate mood and affect. Normal interaction. Course Vital Signs Vital signs: Vital Signs Pulse Rate 76 06/10/25 21:17 Respiratory Rate 06/10/25 21:17 Blood Pressure 129/66 06/10/25 21:17 Pulse Oximetry 100 06/10/25 21:17 Oxygen Delivery Room Air 06/10/25 21:17 Pulse Rate 102 H 06/10/25 22:26 Respiratory Rate 16 06/10/25 21:17 Blood Pressure 112/55 L 06/10/25 22:26 Pulse Oximetry 100 06/10/25 21:17 Oxygen Delivery Room Air 06/10/25 21:17 MDM - Syncope MDM Narrative Medical decision making narrative: Patient presented to ED status post syncopal episode. Did report feeling dizzy, lightheaded, nauseous, diaphoretic prior to the syncopal episode. Reports history of similar previous episodes. Vital signs are stable upon arrival. Patient in no acute distress. Neurologically intact. Reports she feels back to her baseline. Denying any further dizziness or lightheadedness. Orthostatic vital signs were evaluated and no significant drop in blood pressure, however heart rate did increase in patient was symptomatic with each position change. Fluids were initiated. EKG with sinus rhythm, no concerning ST changes Laboratory studies with white blood cell count of 12.6. Otherwise stable H&H. Sodium slightly low 130. Fluids are ongoing. Otherwise stable electrolytes. Stable kidney function. Blood glucose 144. Normal magnesium. Minimal transaminitis. Patient without any right upper quadrant tenderness. UA with 6-10 WBC, however patient without any acute urinary complaints. Sent for culture. Troponin undetectable. Chest x-ray clear. CT brain and cervical spine negative. C-collar removed. D-dimer did result elevated at 1.29. CTA of chest was obtained. Prior to STAT RAD results of CTA of chest, patient requested that her IV be removed by ED nurse. This was performed, but advised if she needed to be admitted, she would require an IV again. Patient voiced understanding. A few minutes later, patient was witnessed ambulating out of the ED. I was not able to speak to her before leaving. This will be considered an elopement. She was ambulatory with a steady gait with her daughter. Medical Records Attestation: I reviewed the patient's medical records. Lab Data Attestation: I reviewed the patient's lab results. 06/10/25 21:28 06/10/25 21:28 Labs: Lab Results 06/10/25 06/10/25 Range/Units 21:28 23:00 WBC 12.6 H (4.5-10.0) K/mm3 RBC 4.86 (4.2-5.4) M/mm3 Hgb 14.2 (12.0-15.0) g/dL Hct 43.4 (37.0-47.0) % MCV 89.3 (80-100) fl MCH 29.2 (26-34) pg MCHC 32.7 (32-36) g/dl RDW 13.7 (11.5-14.5) % Plt Count 231 (150-375) k/mm3 MPV 10.4 (7.4-10.4) fl Immature Gran % (Auto) 0.3 (0-0.5) % Neut % (Auto) 87.0 H (45.5-73.1) % Lymph % (Auto) 6.0 L (18.3-44.2) % [place] % (Auto) 4.1 (2.6-8.5) % Eos % (Auto) 2.4 (0-4.4) % Baso % (Auto) 0.2 (0.2-1.2) % Lymph # (Auto) 0.76 L (0.9-3.2) K/mm3 [place] # (Auto) 0.5 (0.1-0.6) K/mm3 Eos # (Auto) 0.3 (0-0.3) K/mm3 Baso # (Auto) 0.0 (0.0-0.1) K/mm3 Abs Immat Gran (auto) 0.04 H (0.00-0.031) K/mm3 Absolute Neuts (auto) 11.0 H (1.3-6.7) K/mm3 Absolute Nucleated RBC 0.000 (0.0-0.012) K/mm3 Nucleated RBC % 0.0 (0.0-0.2) % D-Dimer 1.29 H (<0.48) ug/mL Sodium 130 L (137-145) mmol/L Potassium 3.8 (3.4-5.0) mmol/L Chloride 97 L (98-107) mmol/L Carbon Dioxide 22 (22-30) mmol/L Anion Gap 11 (4-12) mmol/L BUN 12 (7-17) mg/dL Creatinine 0.76 (0.7-1.0) mg/dL Estim Creat Clear Calc 42 ml/min Estimated GFR > 60 (59 - ) Glucose 144 H (65-110) mg/dL Calcium 9.4 (8.4-10.2) mg/dL Magnesium 2.1 (1.6-2.3) mg/dL Total Bilirubin 0.6 (0.2-1.3) mg/dL AST 40 H (14-36) U/L ALT 39 H (6-35) U/L Alkaline Phosphatase 113 (38-126) U/L Troponin I < 0.012 (0.000-0.034) ng/mL Total Protein 7.6 (6.3-8.2) g/dL Albumin 4.5 (3.5-5.1) g/dL Urine Color Yellow (Yellow) Urine Appearance Clear (Clear) Urine pH 6.5 (5.0-9.0) Ur Specific [place] 1.008 (1.001-1.035) Urine Protein Negative (Negative) mg/dL Urine Glucose (UA) Negative (Negative) mg/dL Urine Ketones Negative (Negative) mg/dL Ur Blood (Man) Negative (Negative) Urine Nitrate Negative (Negative) Urine Bilirubin Negative (Negative) Urine Urobilinogen 0.2 (<2.0) mg/dL Leukocyte Esterase Rfl 1+ H (Negative) FLORINDA/UL Urine RBC 0-2 (0-2) /hpf Urine WBC 6-10 H (0-3) /hpf Ur Squamous Epith Cells None seen (Few) /hpf Urine Bacteria None seen /hpf Urine Casts 0-2 Ethyl Alcohol < 10 (<10) mg/dL Imaging Data Attestation: I personally reviewed and interpreted this imaging study as follows: Radiologist's impression: STAT RAD CT cervical spine: Impression: No acute fracture or subluxation of cervical spine. STAT RAD CT brain: No acute intracranial hemorrhage. No midline shift or mass effect. The territory of singh-white matter differentiation is maintained throughout. Age-related cerebral volume loss. Periventricular and subcortical white matter hypoattenuation, consistent with chronic microangiopathy. STAT RAD CXR: No focal consolidation, pleural effusion, or pneumothorax. No cardiomegaly. ECG Data EKG #1: Attestation: I personally reviewed and interpreted this ECG as follows: ECG completion date: 06/10/25 ECG completion time: 21:19 EKG Interpretation: normal rate (79), sinus rhythm and no ST changes Discharge Plan Discharge Clinical Impression: Syncope and collapse, Orthostatic hypotension Patient Disposition: Elopement After Seen by Prov Patient Language: Georgian Prescriptions: No Action Keytruda 25 mg/mL solution 200 mg IV ONCE Rx Instructions: administer over 30 mins ascorbic acid (vitamin C) 1,000 mg capsule 1 g PO DAILY cholecalciferol (vitamin D3) 25 mcg (1,000 unit) capsule 25 mcg PO DAILY calcium carbonate [Calcium 600] 600 mg calcium (1,500 mg) tablet 600 mg PO DAILY levothyroxine 100 mcg tablet PO ipratropium bromide 21 mcg (0.03 %) spray,non-aerosol 2 spray intranasal TID Qty: 30 5RF Rx Instructions: administer into each nostril. Aim back/up/out Follow-up/Referrals: Corrina,LEILA Phelps [Primary Care Provider, Unknown]
[2025-06-10 22:25] VITALS: BP 116/52; BP 117/61; PULSE 85; PULSE 91
[2025-06-10 22:26] VITALS: BP 112/55; PULSE 102
[2025-06-10] MEDS: SODIUM CHLORIDE 0.9% IV 1,000 ML 999 ML IV CONT (22:32)
--- NOTE | 2025-06-10 23:06 | PC.NURSE ---
Report received from Carolina HOLLAND
[2025-06-10 23:21] LABS: Add Urine Microscopic? YES; Appearance Urine Clear (Clear); Glucose Urine UA Negative (Negative); Leukocyte Esterase Ur 1+ LEU/UL (Negative); Nitrate Urine Negative (Negative); Non Pathogenic Casts 0-2; Specific Grav Ur 1.008 (1.001-1.035)
== END 2025-06-11 01:18 | disposition left against medical advice (07) ==
PROVIDERS: Student in an Organized Health Care Education/Training Program; Emergency Provider Physician Assistant; PCP Physician Assistant
DX: I95.1 Orthostatic hypotension (principal); Z85.118 Personal history of other malignant neoplasm of bronchus and lung; Z87.891 Personal history of nicotine dependence; R94.31 Abnormal electrocardiogram [ECG] [EKG]; R82.998 Other abnormal findings in urine
CPT/HCPCS: 36415; 70450; 71046; 71275; 72125; 80053; 81001; 82077; 83735; 84484; 85025; 85380; 87086; 93005; 96360; 99284; J7030; Q9967